=== PATIENT | female | born 1960 | race Caucasian/White ===

== ENCOUNTER 2017-02-12 08:01 | Inpatient (IN) | payer BC ==
[~2017-02-12] VITALS: Ht 170.2 cm; Wt 87.4 kg
[~2017-02-12 08:01] MED LIST: ASPI81TA PO; ATOR1TAB21 PO; BIOT10005 PO; BUPR150T3 PO; CYCL5TA PO; GABA-279 PO; GABA-282 PO; REST30CA PO; ROPI1TAB PO; SERO1TAB PO; TOPA25TA10 PO; TRAM50TA2 PO; TYLE325T5 PO; VITMTA PO; VOLT1GEL24 TOP; ZYRT10TA2 PO
[2017-02-12 09:07] LABS: BASO % 0.6 % (0.0-1.0); EOS # 0.1 K/mm3 (0.0-0.50); EOS % 2.1 % (0.0-3.0); LARGE UNSTAINED CELL # 0.1 K/mm3 (0.0-0.4); LARGE UNSTAINED CELL % 2.1 % (0.0-4.0); LYMPH % 23.8 % (24.0-44.0); MEAN CORPUSCULAR HEMOGLOBIN 31.3 pg (27.0-33.0); MEAN CORPUSCULAR HGB CONC 33.2 g/dl (32.0-36.5); MEAN CORPUSCULAR VOLUME 94.4 fl (80.0-96.0); MONO # 0.2 K/mm3 (0.0-0.8); MONO % 4.9 % (0.0-5.0); NEUTROPHILS # 2.8 K/mm3 (1.8-7.7); NEUTROPHILS % 66.5 % (36.0-66.0); PLATELET COUNT, AUTOMATED 182 k/mm3 (150-450); RED CELL DISTRIBUTION WIDTH 12.9 % (11.5-14.5); WHITE BLOOD COUNT 4.2 K/mm3 (4.0-10.0)
[2017-02-12 09:15] LABS: CALCIUM LEVEL 8.5 MG/DL (8.5-10.1); CREATININE FOR GFR 1.29 MG/DL (0.55-1.02); GLOMERULAR FILTRATION RATE 45.5 (>51); POTASSIUM SERUM 3.9 MEQ/L (3.5-5.1)
--- NOTE | 2017-02-12 09:29 | ECGEPIP ---
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
[2017-02-12 09:45] LABS: INR 0.97
--- NOTE | 2017-02-12 09:59 | REP ---
Syncopal episode. COMPARISON: 09/04/2016 There is no significant change from the prior exam. The 5 mm size lacunar infarct seen in the head of the caudate nucleus on the right is unchanged. There is no evidence of an acute hemorrhagic or nonhemorrhagic infarction. No acute intracranial abnormality has developed. There is no change in the ventricles of the sulci. There is no shift of the midline structures. There are no extra-axial fluid collections. There is no change in the posterior fossa. The skull is unchanged. The paranasal sinuses and mastoid air cells are unchanged. IMPRESSION: No change. Signed by Federico Milner DO 02/12/2017 10:01 A
--- NOTE | 2017-02-12 10:05 | REP ---
AP SUPINE CHEST: REASON: Syncope COMPARISON: 11/14/2013 FINDINGS: The technique utilized in obtaining the radiograph has magnified the cardiac silhouette and accentuated the interstitial markings. The superior mediastinal structures are midline. The cardiac silhouette is unremarkable in size, shape, and position. The diaphragmatic surfaces of the lungs are regular, and the costophrenic angles are clear. The pulmonary wyatt are clear. The imaged osseous structures are intact. Note is made of a cervical rib on the right. IMPRESSION: There is no acute cardiopulmonary disease. Signed by Federico Milner DO 02/12/2017 10:11 A
--- NOTE | 2017-02-12 10:08 | REP ---
Pain after trauma. PRIORS: None. There is a spiral fracture of the distal fibula. There is soft tissue swelling. Large plantar and retrocalcaneal heel spurs are present. The mortise is intact. There is a tiny flak-like radiodensity distal to the tip of the medial malleolus. Whether this represents an acute fracture or an old fracture cannot be stated by this exam. IMPRESSION: Abnormalities as described above. Signed by Federico Milner DO 02/12/2017 10:11 A
[2017-02-12] MEDS ORDERED: ISOVUE-370 76% 100ML VIAL (Q9967) As Ordered ONE (10:22)
--- NOTE | 2017-02-12 10:41 | REP ---
Pain after trauma. PRIORS: None. Previous ankle series showed a distal fibular spinal fracture and other findings. Review that report. This two-view exam of the mid and upper tibia and fibula show no additional fractures. There are some degenerative changes involving the knee. Signed by Federico Milner DO 02/12/2017 10:55 A
[2017-02-12] MEDS ORDERED: MORPHINE 2 MG/ML 1ML SYRINGE IV ONE (10:45)
[2017-02-12] MEDS ORDERED: ONDANSETRON 4MG/2ML VIAL (J2405) IV ONE (10:45)
--- NOTE | 2017-02-12 11:00 | REP ---
REASON: Syncope, dyspnea. PRIORS: None. Contrast utilized: 100 mL of Isovue 370. There is excellent visualization of the pulmonary arterial vasculature. There are no focal filling defects present that would be considered consistent with pulmonary emboli. There is no mediastinal or hilar adenopathy. There are no pleural or pericardial effusions. The imaged upper abdomen and imaged osseous structures are within normal limits. IMPRESSION: Evaluation of the lung wyatt show a few scattered discoid and asymmetric opacities. No other abnormal nodules, masses, or opacities are present. IMPRESSION: 1. There is no evidence of a pulmonary embolus. 2. Likely subsegmental atelectatic changes in the lung wyatt as described above. Signed by Federico Milner DO 02/12/2017 11:45 A
[2017-02-12] MEDS ORDERED: TRAM50TA2 PO ×2 (11:21)
[2017-02-12] MEDS ORDERED: TOPI1TAB31 PO (11:21)
[2017-02-12] MEDS ORDERED: BUPR300T34 PO (11:21)
[2017-02-12] MEDS ORDERED: TRAZ100T4 PO (11:21)
[2017-02-12] MEDS ORDERED: ASPI81TA7 PO (11:21)
--- NOTE | 2017-02-12 11:49 | REP ---
Single AP view of the right ankle with stress applied. After stress, there is evidence of slight widening of the medial mortise. The flake-like radiodensity seen distal to the distal tip of the medial malleolus is again noted. As mentioned in the ankle series, earlier today, this might represent a tiny avulsion fracture or an old fracture. That distinction cannot be made today. It should be stated, there is no evidence of medial soft tissue swelling. IMPRESSION: 1. No change in the appearance of the fibular fracture. 2. There is a widening of the medial mortise. 3. Other findings as described above. Signed by Federico Milner DO 02/12/2017 01:28 P
[2017-02-12] MEDS ORDERED: MORPHINE 2 MG/ML 1ML SYRINGE IV PRN (12:30)
[2017-02-12] MEDS ORDERED: ACETAMINOPHEN TAB 650MG DOSE (2X325MG) PO PRN (12:30)
[2017-02-12] MEDS ORDERED: ONDANSETRON 4MG/2ML VIAL (J2405) IV PRN (12:30)
[2017-02-12] MEDS ORDERED: PERCOCET 5MG/325MG TAB PO PRN (12:30)
--- NOTE | 2017-02-12 13:04 | HPE ---
DATE OF ADMISSION: 02/12/2017 PRIMARY CARE PROVIDER: Dr. Velasquez CHIEF COMPLAINT: Syncope with collapse. HISTORY OF PRESENT ILLNESS: Ms. Singer is a 56-year-old female with known history of silent cerebral infarcts/subacute infarcts that was seen and evaluated back in August 2016 due to facial numbness. She stated that she was in her normal state of health and has not had any issues recently. She suddenly had to get out of bed to check on her cat and while walking from the bedroom to the hallway she had a sudden collapse with no prodromal symptoms whatsoever. She is unsure of how long she was out, but she did not feel that she was out but a few seconds. She then proceeded to get herself up unassisted, walked to the bathroom and again had another episode that she had complete loss of consciousness. She hit her head this time, resulting in a small superficial laceration of the forehead just to the right below the scalp line. Again, she did not feel that she was out very long. Her did check on her. There was no sign of any other trauma. She did not bite her tongue. She do not have any bladder or bowel incontinence. There was no witnessed seizure activity. There was no prodromal symptoms and she did not appear to have any postictal symptoms as well. She does follow with Dr. Malagon is an outpatient for her continued issues with fibromyalgia, restless leg syndrome and subacute infarct. She denies any recent changes in her medications and she feels that her mentation is at baseline as well as her who is present at bedside agreed that she appears to be doing well otherwise. While in the emergency department, she was evaluated and found to have a right distal fibular spiral fracture. This has been immobilized currently. The hospitalist was contacted for admission. PAST MEDICAL HISTORY: 1. Fibromyalgia. 2. Bipolar disorder. 3. Restless leg syndrome. 4. History of subacute cerebral infarcts. HOME MEDICATIONS: - gabapentin 200 mg in the morning and 300 at night - tramadol 50 mg at bedtime - Seroquel 100 mg daily - bupropion 150 mg daily - ropinirole 4 mg at bedtime - Flexeril 5 mg three times a day as needed PAST SURGICAL HISTORY: 1. Hysterectomy. 2. Tubal ligation 3. Left clavicle partial removal. SOCIAL HISTORY: The patient lives at home with her . She denies tobacco use or alcohol abuse. No illicit drug use. No recent travel. No sick contacts. ALLERGIES: - PENICILLIN - SULFA - OPIATES - BIAXIN FAMILY HISTORY: Noncontributory with any history of sudden cardiac . REVIEW OF SYSTEMS: Constitutional: She denies fevers, chills or rigors. She did have loss of consciousness as indicated above x2 this morning. Denies nausea or vomiting. HEENT: She denies lightheaded, dizziness, blurry vision, double vision or tinnitus. No difficulty with speech or swallow. Pulmonology and Respiratory: Denies any hemoptysis. No productive sputum or cough. However, her did state that she does have issues with snoring at night and has had episodes where she has woke up gasping for air which sounds similar to apneic events. Cardiovascular: No chest pain. No paroxysmal nocturnal dyspnea (PND). No orthopnea. No lower extremity edema. No palpitations. No hematochezia or melena. Genitourinary (): No dysuria, frequency or hematuria. Musculoskeletal: She does have right ankle pain from fracture. She otherwise has no bone, muscle or joint pain, swelling or erythema. Neurologic: Positive for restless leg syndrome and fibromyalgia. She did have a loss of consciousness this morning. Again, she does have what appears to be apneic events when she sleeps and likely needs to have outpatient evaluation with a sleep study. Psychiatric: Positive for bipolar disorder, restless leg syndrome and intermittent anxiety. No suicidal ideation. No audiovisual sedation. Endocrine: Negative for diabetes and negative for thyroid disorder. Lymphatics: No lumps, bumps or swelling of neck, axilla or groin. No night sweats. No weight loss. Hematology: No history of bleeding or bruising disorder. No prior history of venous thromboembolism. Oncology: No history of cancer. Skin: No history of skin lesions or skin cancer. 10-point review of systems completed and pertinent positives are listed. PHYSICAL EXAMINATION: Temperature is 97.1, pulse 74 and regular, respiratory rate 18, blood pressure (BP) 121/74, SPO2 is 97% on room air. General: No acute distress, alert and oriented and pleasant. HEENT: She does have a small superficial laceration just below the scalp line above the right eye. It is approximately a centimeter and a half in length and it has been closed with Dermabond and Steri-Strips. There is some superficial ecchymosis and bruising around the area. Otherwise, eyes are pupils equal, reactive to light and accommodation (FACUNDO). There does not appear to be any ecchymosis around the eyes or nose. Ears are clear of any otorrhea and there is no Danielle's sign present. Throat is clear. Neck: Supple. Lungs: Clear to auscultation. Heart regular rate and rhythm. Normal S1, S2. No murmurs, gallops or rubs. No jugular venous distention (JVD) is appreciated. Abdomen: Normoactive bowel sounds, soft, nontender, nondistended. Extremities: No edema. No calf tenderness. She does have some tenderness on palpation with swelling noted over the distal fibular area. Pulses were intact. Sensation is intact. Neurologic: Cranial nerves II-XII grossly intact. 12-lead EKG: Sinus rhythm with no acute ST-T wave abnormalities. X-ray of the right tib-fib and ankle is significant for a positive spiral fracture involving the right distal fibula. CT angio is negative for pulmonary embolism (PE). She did have however an elevated D-dimer of 1518, but no signs of pulmonary embolism is indicated. Chest x-ray shows no acute cardiopulmonary processes. Head CT with no acute intracranial hemorrhage or fracture. White count 4.2, hemoglobin 14, platelets are 182,000. Sodium 141, potassium 3.9, chloride 115, bicarb 21, anion gap 5, BUN is 14, creatinine 1.29, glucose 114, CK 105, CK-MB 1.4. Troponin is less than 0.02. TSH 2.18. IMPRESSION: Mrs. Singer is a pleasant 56-year-old female who unfortunately had two events this morning resulting in loss of consciousness and minor head trauma with ecchymosis and a small superficial laceration of the forehead. She did not had any prodromal warning and did not have any postictal symptoms. No loss of bladder or bowel control. No signs of what would appear to be a seizure disorder. She does have a history of prior subacute cerebral infarcts with no residual deficit. Her fall has resulted in a spiral fracture of the right distal fibula. At any rate, she will need to be admitted for further evaluation and orthopedics has been consulted. PROBLEM LIST: 1. Syncope with collapse. 2. Right ankle fracture 3. Mild acute kidney injury. 4. Bipolar disorder. 5. Fibromyalgia. 6. Restless leg syndrome. 7. History of cerebral infarct with no residual deficits. PLAN: Admit to progressive care unit (PCU) on telemetry. Will cycle her cardiac markers. She had a 2-D echo performed in August 2016 which demonstrated left ventricular ejection fraction of 70-75% with grade 1 diastolic dysfunction, no anatomic abnormalities, and no signs of aortic stenosis. She does have symptomatology that is suggestive of sleep apnea. Will check an oximetry on her tonight. Obstructive sleep apnea (LILA) precautions will be placed on her as well. I did speak with orthopedics. At her baseline activity, she is able to achieve greater than METS without any limitations. She did have a cardiac catheterization about 10-15 years ago at [facility] which did not demonstrate any coronary artery disease. Will see if we can get those records. Recommend placing her on telemetry for the next 24 hours, cycle her cardiac enzymes, and repeat her EKG prior to medical clearance. For now, she can eat, but will anticipate making her nothing by mouth (n.p.o.) after midnight with the anticipation of perhaps going to surgery tomorrow if she is considered medically optimized at that time. I did discuss this with orthopedics to make sure that they were aware of the plan and will proceed appropriately. LINO
[2017-02-12 14:30] VITALS: BP 132/73
[2017-02-12] MEDS: DOCUSATE SODIUM 100 MG CAP PO SCH ×2 (14:53→20:49)
[2017-02-12] MEDS: HEPARIN SOD (PORCINE) 5000 UNITS/ML VIAL SC SCH ×2 (14:53→20:50)
[2017-02-12] MEDS: MULTIVITAMINS/MINERALS THERAP 1 TAB PO SCH (14:54)
[2017-02-12] MEDS: TOPIRAMATE (TopAMAX) 100 MG TAB PO SCH ×2 (14:54→20:49)
[2017-02-12] MEDS: ASPIRIN 81 MG ENTERIC TAB PO SCH (14:54)
[2017-02-12] MEDS: GABAPENTIN 300 MG CAP PO SCH ×2 (14:54→20:49)
[2017-02-12] MEDS: PERCOCET 5MG/325MG TAB PO PRN ×2 (14:55→20:49)
[2017-02-12 16:00] VITALS: BP 104/63
--- NOTE | 2017-02-12 16:33 | CR.PDOC ---
[facility] Consultation Consultation DATE OF CONSULTATION: Feb 12, 2017 at 08:37 REFERRING PROVIDER: Brandon Munoz MD ATTENDING PHYSICIAN: Dr. Leo Loyd REASON FOR CONSULTATION/CHIEF COMPLAINT: Right ankle fracture. HISTORY OF PRESENT ILLNESS: Patient is a 56 y/o female with a history of 2 syncopal falls earlier today resulting in a rotational injury to the right ankle. Patient had immediate pain and inability to bear weight and presented to the [facility] ER for further evaluation. She denies antecedent headaches, dizziness, chest pain, palpitations, or shortness of breath prior to fall. ALLERGIES: Please see below. HOME MEDICATIONS: Please see below. PAST MEDICAL HISTORY: 1. Fibromyalgia. 2. Bipolar disorder. 3. Restless leg syndrome. 4. History of subacute cerebral infarcts. HOME MEDICATIONS: - gabapentin 200 mg in the morning and 300 at night - tramadol 50 mg at bedtime - Seroquel 100 mg daily - bupropion 150 mg daily - ropinirole 4 mg at bedtime - Flexeril 5 mg three times a day as needed PAST SURGICAL HISTORY: 1. Hysterectomy. 2. Tubal ligation 3. Left clavicle partial removal. SOCIAL HISTORY: The patient lives at home with her . She denies tobacco use or alcohol abuse. No illicit drug use. No recent travel. No sick contacts. ALLERGIES: - PENICILLIN - SULFA - OPIATES - BIAXIN FAMILY HISTORY: Noncontributory with any history of sudden cardiac . REVIEW OF SYSTEMS: Constitutional: She denies fevers, chills or rigors. + LOC x2 this morning per HPI. HEENT: She denies lightheaded, dizziness, blurry vision, double vision or tinnitus. No difficulty with speech or swallow. Pulmonology and Respiratory: Denies any hemoptysis. No productive sputum or cough. Cardiovascular: No chest pain. No palpitations. Genitourinary (): No dysuria, frequency or hematuria. Musculoskeletal: + ankle pain per HPI Neurologic: + LOC per HPI Psychiatric: Positive for bipolar disorder, restless leg syndrome and intermittent anxiety. No suicidal ideation. No audiovisual sedation. Skin: No history of skin lesions or skin cancer. PHYSICAL EXAMINATION: Temperature is 97.1, pulse 74 and regular, respiratory rate 18, blood pressure (BP) 121/74, SPO2 is 97% on room air. GENERAL APPEARANCE: Well nourished female, appears stated age, in no acute distress. HEENT: Normocephalic, atraumatic. CARDIOVASCULAR: 2+ DP/PT pulses and brisk capillary refill to all digits RLE. EXTREMITIES: Focused physical exam of the RLE demonstrates mild soft tissue swelling about the right ankle. There is tenderness about the lateral malleolus. Patient able to flex/extend all toes. Ankle ROM limited secondary to pain NEUROLOGICAL: sensation/motor intact in RLE tibial, sural, saphenous, SPN, DPN distributions RLE. Radiographs: Plain radiographs of the right ankle demonstrate a distal fibula fracture that begins at the level of the syndesmosis. External rotation stress exam demonstrates medial clear space widening consistent with an unstable fracture pattern ASSESSMENT/PLAN: 56 y/o female with an unstable R ankle fracture 1. Given unstable nature of fracture, recommend ORIF R ankle pending complete syncopal workup and appropriate risk stratification. 2. Will plan for ORIF tomorrow Jan pending clearance 3. I discussed with the patient the risks, benefits, indications, and alternatives and she has elected to proceed. 4. NPO after midnight 5. Splint and elevate for comfort 6. Clindamycin IV local telephone operator to OR Vital Signs/I&O Vital Signs Date Time Temp Pulse Resp B/P Pulse Ox O2 Delivery O2 Flow Rate FiO2 02/12/17 15:45 16 02/12/17 13:58 99.2 02/12/17 13:53 106/66 02/12/17 13:49 70 99 02/12/17 11:00 Room Air Laboratory Data Labs 24H Laboratory Tests 2 02/12/17 08:34: Anion Gap 5L, White Blood Count 4.2, Red Blood Count 4.46, Hemoglobin 14.0, Hematocrit 42.1, Mean Corpuscular Volume 94.4, Mean Corpuscular Hemoglobin 31.3 , Mean Corpuscular Hemoglobin Concent 33.2, Red Cell Distribution Width 12.9, Platelet Count 182, Neutrophils (%) (Auto) 66.5H, Lymphocytes (%) (Auto) 23.8L, Monocytes (%) (Auto) 4.9, Eosinophils (%) (Auto) 2.1, Basophils (%) (Auto) 0.6, Neutrophils # (Auto) 2.8, Lymphocytes # (Auto) 1.0L, Monocytes # (Auto) 0.2, Eosinophils # (Auto) 0.1, Basophils # (Auto) 0.0, Blood Urea Nitrogen 14, Creatinine 1.29H, Sodium Level 141, Potassium Level 3.9, Chloride Level 115H, Carbon Dioxide Level 21, Calcium Level 8.5, Creatine Kinase MB 1.4, Creatine Kinase MB Relative Index 1.33, Glomerular Filtration Rate 45.5L, Large Unclassified Cells # 0.1, Large Unclassified Cells % 2.1, Thyroid Stimulating Hormone (TSH) 2.180, Total Creatine Kinase 105, Troponin I < 0.02 02/12/17 09:31: Activated Partial Thromboplast Time 26.4L, D-Dimer, Quantitative 1518.4H, Prothromb Time International Ratio 0.97, Prothrombin Time 13.0 CBC/BMP Laboratory Tests 02/12/17 08:34 Calcium Level 8.5, Red Blood Count 4.46, Mean Corpuscular Volume 94.4, Mean Corpuscular Hemoglobin 31.3, Mean Corpuscular Hemoglobin Concent 33.2, Red Cell Distribution Width 12.9, Neutrophils (%) (Auto) 66.5 H, Lymphocytes (%) (Auto) 23.8 L, Monocytes (%) (Auto) 4.9, Eosinophils (%) (Auto) 2.1, Basophils (%) ( Auto) 0.6, Neutrophils # (Auto) 2.8, Lymphocytes # (Auto) 1.0 L, Monocytes # ( Auto) 0.2, Eosinophils # (Auto) 0.1, Basophils # (Auto) 0.0 Allergies Coded Allergies: Morphine (Unverified Adverse Reaction, Mild, ALL OPIATES-VOMITING, 09/04/16 ) Clarithromycin (Unverified Adverse Reaction, Unknown, VOMITING , 09/04/16) Penicillins (Unverified Adverse Reaction, Unknown, HIVES, 09/04/16) Sulfa Antibiotics (Unverified Adverse Reaction, Unknown, HIVES, 09/04/16) Home Medications Scheduled Aspirin (Aspirin) 81 Mg Tab 81 MG PO DAILY (Reported) Biotin (Vitamin H) (Biotin) 1,000 Mcg Tab 1,000 MCG PO DAILY (Reported) Bupropion HCl (Bupropion HCl Xl) 300 Mg Tab 300 MG PO DAILY (Reported) Cetirizine HCl (Zyrtec Allergy) 10 Mg Tab 10 MG PO QHS (Reported) Gabapentin (Gabapentin) 300 Mg Cap 300 MG PO TID (Reported) Multivitamins *[facility]* (Thera M Plus *[facility]*) 1 Tab Tab 1 TAB PO DAILY (Reported) Quetiapine Fumerate (Seroquel) 100 Mg Tab 100 MG PO QHS (Reported) Ropinirole Hydrochloride (Ropinirole HCl) 1 Mg Tab 4 MG PO QHS (Reported) Topiramate (Topiramate) 100 Mg Tab 100 MG PO BID (Reported) Tramadol HCl (Tramadol HCl) 50 Mg Tab 100 MG PO QHS (Reported) Trazodone HCl (Trazodone HCl) 100 Mg Tab 100 MG PO QHS (Reported) Scheduled PRN Acetaminophen (Tylenol) 325 Mg Tab 650 MG PO Q4H PRN PRN PAIN (Reported) Tramadol HCl (Tramadol HCl) 50 Mg Tab 50 MG PO Q6H PRN PRN PAIN (Reported) LORI LOYD MD Feb 12, 2017 16:33
[2017-02-12] MEDS: buPROPion **XL** TABLET 150MG (WELLBUTRIN XL) PO SCH (17:59)
[2017-02-12 19:54] VITALS: BP_SYST 120; BP_SYST 134; BP_DIAS 67; BP_DIAS 70
[2017-02-12 19:55] VITALS: BP_SYST 125; BP_SYST 157; BP_DIAS 73; BP_DIAS 80
[2017-02-12] MEDS: QUEtiapine FUMARATE 100 MG TAB PO SCH (20:49)
[2017-02-12] MEDS: CETIRIZINE (ZyrTEC) 10 MG TAB PO SCH (20:49)
[2017-02-12] MEDS: rOPINIRole 1MG TAB PO SCH (20:49)
[2017-02-12] MEDS: traZODone 100 MG TAB PO SCH (20:49)
[2017-02-13] VITALS (8 sets, daily range): BP systolic 97–118; BP diastolic 52–68
[2017-02-13] MEDS: PERCOCET 5MG/325MG TAB PO PRN ×4 (04:05→20:26)
[2017-02-13] MEDS: HEPARIN SOD (PORCINE) 5000 UNITS/ML VIAL SC SCH (06:00)
[2017-02-13] MEDS ORDERED: CLINDAMYCIN 600 MG in APPROPRIATE DILUENT 1 EA IV SCH (08:00)
[2017-02-13 08:09] LABS: MEAN CORPUSCULAR HEMOGLOBIN 30.4 pg (27.0-33.0); MEAN CORPUSCULAR HGB CONC 32.3 g/dl (32.0-36.5); MEAN CORPUSCULAR VOLUME 94.2 fl (80.0-96.0); RED CELL DISTRIBUTION WIDTH 12.9 % (11.5-14.5); WHITE BLOOD COUNT 5.5 K/mm3 (4.0-10.0)
[2017-02-13] MEDS: MULTIVITAMINS/MINERALS THERAP 1 TAB PO SCH (08:34)
[2017-02-13] MEDS: buPROPion **XL** TABLET 150MG (WELLBUTRIN XL) PO SCH (08:34)
[2017-02-13] MEDS: ASPIRIN 81 MG ENTERIC TAB PO SCH (08:34)
[2017-02-13] MEDS: DOCUSATE SODIUM 100 MG CAP PO SCH ×2 (08:34→20:22)
[2017-02-13] MEDS: GABAPENTIN 300 MG CAP PO SCH ×3 (08:34→20:24)
[2017-02-13] MEDS: TOPIRAMATE (TopAMAX) 100 MG TAB PO SCH ×2 (08:34→20:24)
[2017-02-13 09:12] LABS: CALCIUM LEVEL 8.5 MG/DL (8.5-10.1); CREATININE FOR GFR 1.16 MG/DL (0.55-1.02); GLOMERULAR FILTRATION RATE 51.4 (>51); POTASSIUM SERUM 3.9 MEQ/L (3.5-5.1)
--- NOTE | 2017-02-13 10:13 | REP ---
MRI BRAIN WITHOUT CONTRAST: HISTORY: Left hand numbness. COMPARISON: 09/04/2016. Areas of increased signal intensity on T2-weighted images are present in the right basal ganglia, periventricular white matter of the right parietal lobe and right cerebellum. These represent old lacunar infarctions. Scattered punctate areas of increased signal intensity on T2-weighted images are present in the periventricular and subcortical white matter. This represents small vessel ischemic disease. There is no intraparenchymal hemorrhage, acute infarct, mass or midline shift. The ventricular system is normal in appearance. There is no extracerebral collection. Mucosal thickening is present in the left mastoid air cells. The sinuses are clear. IMPRESSION: 1. Old right basal ganglia, right parietal lobe and right cerebellar lacunar infarctions. 2. Minimal small vessel ischemic disease. Signed by Polo Chowdary MD 02/13/2017 10:15 A
--- NOTE | 2017-02-13 11:02 | CR.PDOC ---
[facility] Consultation Consultation Follow up consult note DATE OF CONSULTATION: Feb 12, 2017 at 08:37 REASON FOR CONSULTATION/CHIEF COMPLAINT: f/u R ankle fracture. Subjective: Patient is a 56 y/o female s/p syncopal fall resulting in right ankle fracture with subtle medial clear space widening on stress exam. After discussion with Hospitalist, there is suspicion that TIA may be the etiology of her syncopal falls. ASSESSMENT/PLAN: 1. Given the relatively stable appearance of her fracture pattern with only subtle medial clear space widening on stress exam, the risks of surgery may outweigh the benefits. Therefore, we recommend cast treatment with non weight bearing for 6 weeks. 2. Patient to follow up routinely after discharge from [place] [facility] [place] to a short leg NWB cast. Vital Signs/I&O Vital Signs Date Time Temp Pulse Resp B/P Pulse Ox O2 Delivery O2 Flow Rate FiO2 02/13/17 08:00 98.0 71 18 108/62 95 Room Air I&O- Last 24 Hours up to 6 AM 02/13/17 06:00 Intake Total 900 ml Output Total 300 ml Balance 600 ml Laboratory Data Labs 24H Laboratory Tests 2 02/12/17 17:40: Creatine Kinase MB 1.8, Creatine Kinase MB Relative Index 1.56, Total Creatine Kinase 115, Troponin I < 0.02 02/13/17 01:55: Creatine Kinase MB 2.1, Creatine Kinase MB Relative Index 1.87, Total Creatine Kinase 112, Troponin I < 0.02 02/13/17 07:57: Anion Gap 9, Blood Urea Nitrogen 11, Creatinine 1.16H, Sodium Level 143, Potassium Level 3.9, Chloride Level 113H, Carbon Dioxide Level 21, Calcium Level 8.5, Glomerular Filtration Rate 51.4 CBC/BMP Laboratory Tests 02/13/17 07:57 Calcium Level 8.5, Red Blood Count 4.42, Mean Corpuscular Volume 94.2, Mean Corpuscular Hemoglobin 30.4, Mean Corpuscular Hemoglobin Concent 32.3, Red Cell Distribution Width 12.9 Allergies Coded Allergies: Morphine (Unverified Adverse Reaction, Mild, ALL OPIATES-VOMITING, 09/04/16 ) Clarithromycin (Unverified Adverse Reaction, Unknown, VOMITING , 09/04/16) Penicillins (Unverified Adverse Reaction, Unknown, HIVES, 11/6/16) Sulfa Antibiotics (Unverified Adverse Reaction, Unknown, HIVES, 09/04/16) Home Medications Scheduled Aspirin (Aspirin) 81 Mg Tab 81 MG PO DAILY (Reported) Biotin (Vitamin H) (Biotin) 1,000 Mcg Tab 1,000 MCG PO DAILY (Reported) Bupropion HCl (Bupropion HCl Xl) 300 Mg Tab 300 MG PO DAILY (Reported) Cetirizine HCl (Zyrtec Allergy) 10 Mg Tab 10 MG PO QHS (Reported) Gabapentin (Gabapentin) 300 Mg Cap 300 MG PO TID (Reported) Multivitamins *[facility] STOCKED* (Thera M Plus *[facility] STOCKED*) 1 Tab Tab 1 TAB PO DAILY (Reported) Quetiapine Fumerate (Seroquel) 100 Mg Tab 100 MG PO QHS (Reported) Ropinirole Hydrochloride (Ropinirole HCl) 1 Mg Tab 4 MG PO QHS (Reported) Topiramate (Topiramate) 100 Mg Tab 100 MG PO BID (Reported) Tramadol HCl (Tramadol HCl) 50 Mg Tab 100 MG PO QHS (Reported) Trazodone HCl (Trazodone HCl) 100 Mg Tab 100 MG PO QHS (Reported) Scheduled PRN Acetaminophen (Tylenol) 325 Mg Tab 650 MG PO Q4H PRN PRN PAIN (Reported) Tramadol HCl (Tramadol HCl) 50 Mg Tab 50 MG PO Q6H PRN PRN PAIN (Reported) LORI LOYD MD Feb 13, 2017 11:02
--- NOTE | 2017-02-13 12:51 | ECGEPIP ---
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
--- NOTE | 2017-02-13 18:54 | IPNPDOC ---
Date Seen The patient was seen on 02/13/17. Progress Note Hospitalist Progress Note Subjective: Patient feels well, and has not had any other episodes of passing out. She does note, however, that overnight she has developed numbness in her left thumb, forefinger, and middle finger. Objective: Physical Exam: Vitals: Vital Sign - Last 24 Hours 02/12/17 02/12/17 02/12/17 02/12/17 19:54 19:55 19:55 20:49 Temp 98.9 Pulse 69 76 104 Resp 16 18 B/P 120/67 125/73 157/80 Pulse Ox 94 O2 Delivery Room Air 02/13/17 02/13/17 02/13/17 02/13/17 00:22 04:00 04:05 08:00 Temp 97.8 98.2 98.0 Pulse 72 75 71 Resp 18 18 18 18 B/P 109/60 117/68 108/62 Pulse Ox 96 98 95 O2 Delivery Room Air Room Air Room Air 02/13/17 02/13/17 02/13/17 02/13/17 11:25 11:27 11:55 15:35 Temp 98.8 97.7 Pulse 70 75 Resp 20 20 18 18 B/P 118/60 104/62 Pulse Ox 96 99 O2 Delivery Room Air Room Air 02/13/17 16:02 Resp 20 Pulse Ox 96 O2 Delivery Room Air General: Awake, alert, no acute distress HEENT: Normal cephalic, atraumatic, extraocular movements intact CV: Regular rate and rhythm, no murmurs rubs or gallops Lungs: Clear To auscultation bilaterally Abd: Soft, Nontender, nondistended Extremities: Right ankle is splinted, no edema of the left ankle Neuro: Alert and oriented 3, finger to nose intact, no facial droop, no obvious deficits in any extremities, noting that examination of the right lower extremity is limited Psych: Normal mood and affect Labs and Imaging: Laboratory Tests 02/13/17 07:57 Calcium Level 8.5, Red Blood Count 4.42, Mean Corpuscular Volume 94.2, Mean Corpuscular Hemoglobin 30.4, Mean Corpuscular Hemoglobin Concent 32.3, Red Cell Distribution Width 12.9 Assessment and Plan: 56-year-old female with history of silent CVAs, fibromyalgia, bipolar disorder, restless leg syndrome who presented to the emergency department after experiencing to 7 episodes of syncope this morning. The first one happened when she got out of bed quite suddenly, and the second one happened as she was arriving in the bathroom. During one of these episodes, the fall resulted in a right spiral ankle fracture. 1. Right spiral ankle fracture: Management as per orthopedics 2. Syncope: Etiology is unclear at this time. There is no evidence of orthostasis in the emergency department, although her creatinine is slightly elevated at 1.29. Her telemetry overnight did not show any evidence of arrhythmia or bradycardia, and an EKG and troponins are unremarkable. An echocardiogram completed in August of last year showed preserved ejection fraction, grade 1 diastolic dysfunction, no evidence of significant valvular disease. The history is not consistent with any sort of seizure. Given her new symptoms of numbness in her hand, and her history of silent CVAs, I think it is best to check an MRI at this time. 3. Elevated d-dimer: CTA does not show any evidence of pulmonary embolism. 4. Fibromyalgia, Bipolar disorder: Continue home Topamax, Seroquel, Wellbutrin, gabapentin, trazodone 5. Restless leg syndrome: Continue home Requip. DVT prophylaxis: Heparin Dispo: pending MRI results and workup of syncope VS, I&O, 24H, Fishbone Vital Signs/I&O Vital Signs Date Time Temp Pulse Resp B/P Pulse Ox O2 Delivery O2 Flow Rate FiO2 02/13/17 16:02 20 96 Room Air 02/13/17 15:35 97.7 75 104/62 I&O- Last 24 Hours up to 6 AM 02/13/17 06:00 Intake Total 900 ml Output Total 300 ml Balance 600 ml Laboratory Data 24H LABS Laboratory Tests 2 02/13/17 01:55: Creatine Kinase MB 2.1, Creatine Kinase MB Relative Index 1.87, Total Creatine Kinase 112, Troponin I < 0.02 02/13/17 07:57: Anion Gap 9, Blood Urea Nitrogen 11, Creatinine 1.16H, Sodium Level 143, Potassium Level 3.9, Chloride Level 113H, Carbon Dioxide Level 21, Calcium Level 8.5, Glomerular Filtration Rate 51.4 CBC/BMP Laboratory Tests 02/13/17 07:57 Calcium Level 8.5, Red Blood Count 4.42, Mean Corpuscular Volume 94.2, Mean Corpuscular Hemoglobin 30.4, Mean Corpuscular Hemoglobin Concent 32.3, Red Cell Distribution Width 12.9 ALYSON NANCE Feb 13, 2017 18:54
[2017-02-13] MEDS: rOPINIRole 1MG TAB PO SCH (20:22)
[2017-02-13] MEDS: CETIRIZINE (ZyrTEC) 10 MG TAB PO SCH (20:23)
[2017-02-13] MEDS: traZODone 100 MG TAB PO SCH (20:23)
[2017-02-13] MEDS: QUEtiapine FUMARATE 100 MG TAB PO SCH (20:24)
[2017-02-14] VITALS (9 sets, daily range): BP systolic 100–159; BP diastolic 57–101
[2017-02-14] MEDS ORDERED: SLF 3 ML SYR IV PRN
[2017-02-14 05:50] LABS: MEAN CORPUSCULAR HEMOGLOBIN 31.4 pg (27.0-33.0); MEAN CORPUSCULAR HGB CONC 31.6 g/dl (32.0-36.5); RED CELL DISTRIBUTION WIDTH 12.7 % (11.5-14.5); WHITE BLOOD COUNT 4.5 K/mm3 (4.0-10.0)
[2017-02-14 05:56] LABS: CALCIUM LEVEL 7.8 MG/DL (8.5-10.1); CREATININE FOR GFR 1.09 MG/DL (0.55-1.02); GLOMERULAR FILTRATION RATE 55.3 (>51); MAGNESIUM LEVEL 2.3 MG/DL (1.8-2.4); POTASSIUM SERUM 3.9 MEQ/L (3.5-5.1)
[2017-02-14] MEDS: PERCOCET 5MG/325MG TAB PO PRN ×3 (05:56→21:21)
[2017-02-14] MEDS: SLF 3 ML SYR IV SCH ×3 (05:57→21:22)
[2017-02-14 05:58] LABS: MEAN CORPUSCULAR VOLUME 99.2 fl (80.0-96.0)
[2017-02-14] MEDS: GABAPENTIN 300 MG CAP PO SCH ×3 (09:12→21:21)
[2017-02-14] MEDS: MULTIVITAMINS/MINERALS THERAP 1 TAB PO SCH (09:12)
[2017-02-14] MEDS: DOCUSATE SODIUM 100 MG CAP PO SCH (09:12)
[2017-02-14] MEDS: ASPIRIN 81 MG ENTERIC TAB PO SCH (09:12)
[2017-02-14] MEDS: TOPIRAMATE (TopAMAX) 100 MG TAB PO SCH ×2 (09:12→21:22)
[2017-02-14] MEDS: buPROPion **XL** TABLET 150MG (WELLBUTRIN XL) PO SCH (09:13)
[2017-02-14] MEDS: NS 1,000 ML IV SCH ×2 (10:01→16:56)
--- NOTE | 2017-02-14 19:09 | IPNPDOC ---
Date Seen The patient was seen on 02/14/17. Progress Note Hospitalist Progress Note Subjective: Patient continues to feel well. She states that the numbness in her left hand has resolved. Objective: Physical Exam: Vitals: Vital Sign - Last 24 Hours 02/13/17 02/13/17 02/13/17 02/13/17 20:00 20:26 20:28 23:59 Temp 97.8 98.2 Pulse 80 80 77 Resp 20 14 14 20 B/P 98/58 98/58 97/52 Pulse Ox 98 98 98 99 O2 Delivery Room Air Room Air Room Air Room Air 02/14/17 02/14/17 02/14/17 02/14/17 04:00 05:56 07:01 07:30 Temp 98.0 Pulse 81 Resp 18 14 B/P 100/57 Pulse Ox 99 95 95 O2 Delivery Room Air Room Air Room Air 02/14/17 02/14/17 02/14/17 02/14/17 07:45 10:01 10:31 12:20 Temp 97.9 97.5 Pulse 73 69 Resp 20 20 20 20 B/P 119/72 159/81 Pulse Ox 97 97 O2 Delivery Room Air Room Air Room Air Room Air 02/14/17 15:45 Temp 98.2 Pulse 77 Resp 20 B/P 116/62 Pulse Ox 98 O2 Delivery Room Air General: Awake, alert, no acute distress HEENT: Normal cephalic, atraumatic, extraocular movements intact CV: Regular rate and rhythm, no murmurs rubs or gallops Lungs: Clear To auscultation bilaterally Abd: Soft, Nontender, nondistended Extremities: Right ankle is splinted, no edema of the left ankle Neuro: Alert and oriented 3, finger to nose intact, no facial droop, no obvious deficits in any extremities, noting that examination of the right lower extremity is limited Psych: Normal mood and affect Labs and Imaging: Laboratory Tests 02/14/17 05:33 Calcium Level 7.8 L, Red Blood Count 4.19, Mean Corpuscular Volume 99.2 #H, Mean Corpuscular Hemoglobin 31.4, Mean Corpuscular Hemoglobin Concent 31.6 L, Red Cell Distribution Width 12.7 Assessment and Plan: 56-year-old female with history of silent CVAs, fibromyalgia, bipolar disorder, restless leg syndrome who presented to the emergency department after experiencing to 7 episodes of syncope this morning. The first one happened when she got out of bed quite suddenly, and the second one happened as she was arriving in the bathroom. During one of these episodes, the fall resulted in a right spiral ankle fracture. 1. Right spiral ankle fracture: Management as per orthopedics; they are currently recommending casting 2. Syncope: Etiology is unclear at this time. There is no evidence of orthostasis in the emergency department, although her creatinine was slightly elevated at 1.29. Her telemetry has not shown any evidence of arrhythmia or bradycardia, and an EKG and troponins are unremarkable. An echocardiogram completed in August of last year showed preserved ejection fraction, grade 1 diastolic dysfunction, no evidence of significant valvular disease. The history is not consistent with any sort of seizure. Given her new symptoms of numbness in her hand, and her history of silent CVAs, we checked an MRI, which did not show any acute changes. Overnight and this morning, her BP has been low, so we will give her IVF and recheck orthostatics. 3. Elevated d-dimer: CTA does not show any evidence of pulmonary embolism. 4. Fibromyalgia, Bipolar disorder: Continue home Topamax, Seroquel, Wellbutrin, gabapentin, trazodone 5. Restless leg syndrome: Continue home Requip. DVT prophylaxis: Heparin Dispo: pending improvement in low BP VS, I&O, 24H, [facility] Vital Signs/I&O Vital Signs Date Time Temp Pulse Resp B/P Pulse Ox O2 Delivery O2 Flow Rate FiO2 02/14/17 15:45 98.2 77 20 116/62 98 Room Air I&O- Last 24 Hours up to 6 AM 02/14/17 06:00 Intake Total 500 ml Output Total 550 ml Balance -50 ml Laboratory Data 24H LABS Laboratory Tests 2 02/14/17 05:33: Anion Gap 6L, Blood Urea Nitrogen 10, Creatinine 1.09H, Sodium Level 143, Potassium Level 3.9, Chloride Level 112H, Carbon Dioxide Level 25, Calcium Level 7.8L, Glomerular Filtration Rate 55.3, Magnesium Level 2.3 CBC/BMP Laboratory Tests 02/14/17 05:33 Calcium Level 7.8 L, Red Blood Count 4.19, Mean Corpuscular Volume 99.2 #H, Mean Corpuscular Hemoglobin 31.4, Mean Corpuscular Hemoglobin Concent 31.6 L, Red Cell Distribution Width 12.7 ALYSON NANCE Feb 14, 2017 19:09
[2017-02-14] MEDS: rOPINIRole 1MG TAB PO SCH (21:21)
[2017-02-14] MEDS: traZODone 100 MG TAB PO SCH (21:21)
[2017-02-14] MEDS: CETIRIZINE (ZyrTEC) 10 MG TAB PO SCH (21:22)
[2017-02-14] MEDS: QUEtiapine FUMARATE 100 MG TAB PO SCH (21:22)
[2017-02-14] MEDS ORDERED: MIRALAX *UNIT DOSE* 17GM PACKET PO PRN (21:30)
[2017-02-15] MEDS: NS 1,000 ML IV SCH ×2 (02:37→14:13)
[2017-02-15 04:00] VITALS: BP 96/57
[2017-02-15] MEDS: SLF 3 ML SYR IV SCH ×2 (04:32→14:00)
[2017-02-15 06:07] LABS: MEAN CORPUSCULAR HEMOGLOBIN 30.8 pg (27.0-33.0); MEAN CORPUSCULAR HGB CONC 32.6 g/dl (32.0-36.5); MEAN CORPUSCULAR VOLUME 94.4 fl (80.0-96.0); RED CELL DISTRIBUTION WIDTH 12.8 % (11.5-14.5); WHITE BLOOD COUNT 4.2 K/mm3 (4.0-10.0)
[2017-02-15 06:21] LABS: ANION GAP 4 MEQ/L (8-16); BLOOD UREA NITROGEN 10 MG/DL (7-18); CALCIUM LEVEL 8.2 MG/DL (8.5-10.1); CARBON DIOXIDE LEVEL 23 MEQ/L (21-32); CHLORIDE LEVEL 117 MEQ/L (98-107); CREATININE FOR GFR 0.96 MG/DL (0.55-1.02); GLOMERULAR FILTRATION RATE > 60.0 (>51); GLUCOSE, FASTING 104 MG/DL (70-105); MAGNESIUM LEVEL 2.4 MG/DL (1.8-2.4); POTASSIUM SERUM 3.9 MEQ/L (3.5-5.1); SODIUM LEVEL 144 MEQ/L (136-145)
[2017-02-15 06:36] VITALS: BP 108/62
[2017-02-15] MEDS: PERCOCET 5MG/325MG TAB PO PRN (06:37)
--- NOTE | 2017-02-15 06:57 | NOCOX ---
DATE OF PROCEDURE: 02/13/2017 INTERPRETATION: Nocturnal recording oximetry was performed on room air. A total of 7 hours and 9 minutes of data was reviewed. Mean oxygen saturation for the study was 97% with a minimal recorded value of 85%. She spent 99.8% of this time with saturations greater than or equal to 90%. There are fluctuations int the SpO2 wave form suggestive of sleep disorder breathing. IMPRESSION: 1. Acceptable nocturnal oxygenation on room air. 2. Fluctuations in the SpO2 wave form suggestive of sleep disorder breathing. Clinical correlation will be necessary.
[2017-02-15 08:00] VITALS: BP_SYST 114; BP_SYST 121; BP_SYST 129; BP_DIAS 65; BP_DIAS 69; BP_DIAS 71; BP_DIAS 74
[2017-02-15] MEDS ORDERED: SENOKOT S TAB PO SCH (09:00)
[2017-02-15] MEDS: buPROPion **XL** TABLET 150MG (WELLBUTRIN XL) PO SCH (09:37)
[2017-02-15] MEDS: TOPIRAMATE (TopAMAX) 100 MG TAB PO SCH (09:37)
[2017-02-15] MEDS: MULTIVITAMINS/MINERALS THERAP 1 TAB PO SCH (09:37)
[2017-02-15] MEDS: GABAPENTIN 300 MG CAP PO SCH (09:37)
[2017-02-15] MEDS: ASPIRIN 81 MG ENTERIC TAB PO SCH (09:38)
[2017-02-15] MEDS ORDERED: PERCOCET PO (10:58)
--- NOTE | 2017-02-15 16:48 | DS.PDOC ---
Discharge Summary General Date of Admission Feb 12, 2017 at 11:13 Date of Discharge 02/15/2017 Discharge Summary DATE OF ADMISSION: 02/12/2017 DATE OF DISCHARGE: 02/15/2017 PRIMARY CARE PHYSICIAN: Dr. Velasquez DISCHARGE DIAGNOS(E)S: Syncope, most likely secondary to dehydration Right spiral ankle fracture Elevated d-dimer HPI & HOSPITAL COURSE: 56-year-old female with history of silent CVAs, fibromyalgia, bipolar disorder, restless leg syndrome who presented to the emergency department after experiencing to 7 episodes of syncope this morning. The first one happened when she got out of bed quite suddenly, and the second one happened as she was arriving in the bathroom. During one of these episodes, the fall resulted in a right spiral ankle fracture. 1. Right spiral ankle fracture: Management as per orthopedics; they are currently recommending casting in their office to replace the splint they have on it at this time; NWB x6 weeks 2. Syncope: Etiology is unclear at this time but I suspect dehydration. She had never experienced syncope prior to this episode. There was no evidence of orthostasis in the emergency department, although her creatinine was slightly elevated at 1.29. Her telemetry has not shown any evidence of arrhythmia or bradycardia, and an EKG and troponins are unremarkable. An echocardiogram completed in August of last year showed preserved ejection fraction, grade 1 diastolic dysfunction, no evidence of significant valvular disease. The history is not consistent with any sort of seizure. Given her new symptoms of numbness in her hand, and her history of silent CVAs, we checked an MRI, which did not show any acute changes. While here, her BP was low, so she received more IVF. We saw a return in her kidney function to normal after the IVF, and her BP came up as well. She was not orthostatic on discharge. 3. Elevated d-dimer: CTA does not show any evidence of pulmonary embolism. 4. Fibromyalgia, Bipolar disorder: Continue home Topamax, Seroquel, Wellbutrin, gabapentin, trazodone 5. Restless leg syndrome: Continue home Requip. DVT prophylaxis: Heparin PHYSICAL EXAMINATION ON DISCHARGE: VITAL SIGNS: Vital Signs Date Time Temp Pulse Resp B/P Pulse Ox O2 Delivery O2 Flow Rate FiO2 02/15/17 08:34 Room Air 02/15/17 08:00 98.1 75 18 121/71 99 General: Awake, alert, no acute distress HEENT: Normal cephalic, atraumatic, extraocular movements intact CV: Regular rate and rhythm, no murmurs rubs or gallops Lungs: Clear To auscultation bilaterally Abd: Soft, Nontender, nondistended Extremities: Right ankle is splinted, no edema of the left ankle Neuro: Alert and oriented 3, finger to nose intact, no facial droop, no obvious deficits in any extremities, noting that examination of the right lower extremity is limited Psych: Normal mood and affect DISPOSITION: Home DISCHARGE INSTRUCTIONS: PCP within one week. [facility] within 1 week. Nonweightbearing on right lower extremity for 6 weeks If symptoms return, or if you experience worsening of your symptoms, please call your doctor or return to the emergency department. ITEMS THAT NEED OUTPATIENT FOLLOWUP: Patient will have leg casted at her follow-up appointment with orthopedics Patient was seen and examined by me on the day of discharge, and I spent a total time of greater than 30 minutes on this discharge. Vital Signs/I&Os Vital Signs Date Time Temp Pulse Resp B/P Pulse Ox O2 Delivery O2 Flow Rate FiO2 02/15/17 08:34 Room Air 02/15/17 08:00 98.1 75 18 121/71 99 I&O- Last 24 Hours up to 6 AM 02/15/17 05:59 Intake Total 3038 ml Output Total 1150 ml Balance 1888 ml Laboratory Data Labs 24H Laboratory Tests 2 02/15/17 05:57: Anion Gap 4L, Blood Urea Nitrogen 10, Creatinine 0.96, Sodium Level 144, Potassium Level 3.9, Chloride Level 117H, Carbon Dioxide Level 23, Calcium Level 8.2L, Glomerular Filtration Rate > 60.0, Magnesium Level 2.4 CBC/BMP Laboratory Tests 02/15/17 05:57 Calcium Level 8.2 L, Red Blood Count 4.02, Mean Corpuscular Volume 94.4, Mean Corpuscular Hemoglobin 30.8, Mean Corpuscular Hemoglobin Concent 32.6, Red Cell Distribution Width 12.8 Discharge Medications Scheduled Aspirin (Aspirin) 81 Mg Tab 81 MG PO DAILY (Reported) Biotin (Vitamin H) (Biotin) 1,000 Mcg Tab 1,000 MCG PO DAILY (Reported) Bupropion HCl (Bupropion HCl Xl) 300 Mg Tab 300 MG PO DAILY (Reported) Cetirizine HCl (Zyrtec Allergy) 10 Mg Tab 10 MG PO QHS (Reported) Gabapentin (Gabapentin) 300 Mg Cap 300 MG PO TID (Reported) Multivitamins *[facility]* (Thera M Plus *[facility]*) 1 Tab Tab 1 TAB PO DAILY (Reported) Quetiapine Fumerate (Seroquel) 100 Mg Tab 100 MG PO QHS (Reported) Ropinirole Hydrochloride (Ropinirole HCl) 1 Mg Tab 4 MG PO QHS (Reported) Topiramate (Topiramate) 100 Mg Tab 100 MG PO BID (Reported) Trazodone HCl (Trazodone HCl) 100 Mg Tab 100 MG PO QHS (Reported) Scheduled PRN Acetaminophen (Tylenol) 325 Mg Tab 650 MG PO Q4H PRN PRN PAIN (Reported) Oxycodone/Acetaminophen (Percocet 5MG/325MG Tablet) 1 Tab Tab 1-2 TAB PO Q4HP PRN PRN PAIN Tramadol HCl (Tramadol HCl) 50 Mg Tab 50 MG PO Q6H PRN PRN PAIN (Reported) Allergies Coded Allergies: Morphine (Unverified Adverse Reaction, Mild, ALL OPIATES-VOMITING, 09/04/16 ) Clarithromycin (Unverified Adverse Reaction, Unknown, VOMITING , 09/04/16) Penicillins (Unverified Adverse Reaction, Unknown, HIVES, 09/04/16) Sulfa Antibiotics (Unverified Adverse Reaction, Unknown, HIVES, 09/04/16) ALYSON NANCE Feb 15, 2017 16:48
== END 2017-02-15 15:27 | disposition home or self-care (01) | DRG 342 ==
LOC: M ED 08:37 → M ED INP 11:13 → M PCU 02-13 15:30
PROVIDERS: ADMIT Hospitalist; ATTEND Hospitalist
DX: S82.54XA Nondisplaced fracture of medial malleolus of right tibia, initial encounter for closed fracture (principal); N17.9 Acute kidney failure, unspecified; R55 Syncope and collapse; M79.7 Fibromyalgia; F31.9 Bipolar disorder, unspecified; Z86.73 Personal history of transient ischemic attack (TIA), and cerebral infarction without residual deficits; W18.30XA Fall on same level, unspecified, initial encounter; Y92.002 Bathroom of unspecified non-institutional (private) residence as the place of occurrence of the external cause; G25.81 Restless legs syndrome; Z79.899 Other long term (current) drug therapy; Z88.0 Allergy status to penicillin; Z88.2 Allergy status to sulfonamides; Z88.8 Allergy status to other drugs, medicaments and biological substances

== ENCOUNTER 2018-01-27 16:40 | Emergency (ER) | payer OTHER, BC | END 2018-01-27 18:01 | disposition home or self-care (01) | LOC: M ED 16:40 | DX: S83.411A Sprain of medial collateral ligament of right knee, initial encounter (principal); X50.1XXA Overexertion from prolonged static or awkward postures, initial encounter; Y92.89 Other specified places as the place of occurrence of the external cause | CPT/HCPCS: 73564 ==

== ENCOUNTER → 2018-05-23 | Outpatient (REF) | payer BC ==
[2018-05-23 16:20] LABS: BASO % 0.7 % (0.0-1.0); EOS % 0.7 % (0.0-3.0); HEMATOCRIT 42.5 % (36.0-47.0); HEMOGLOBIN 14.1 g/dl (12.0-15.5); IMMATURE GRANULOCYTE % 0.2 % (0-3.0); LYMPH # 1.7 10^3/uL (1.5-4.5); LYMPH % 30.7 % (24.0-44.0); MEAN CORPUSCULAR HEMOGLOBIN 31.3 pg (27.0-33.0); MEAN CORPUSCULAR HGB CONC 33.2 g/dl (32.0-36.5); MEAN CORPUSCULAR VOLUME 94.4 fl (80.0-96.0); MONO # 0.5 10^3/uL (0.0-0.8); MONO % 8.2 % (0.0-5.0); NEUTROPHILS # 3.3 10^3/uL (1.8-7.7); NEUTROPHILS % 59.5 % (36.0-66.0); PLATELET COUNT, AUTOMATED 232 10^3/uL (150-450); RED CELL DISTRIBUTION WIDTH 12.8 % (11.5-14.5); WHITE BLOOD COUNT 5.5 10^3/uL (4.0-10.0)
[2018-05-23 16:29] LABS: ALBUMIN 4.3 GM/DL (3.2-5.2); ALBUMIN/GLOBULIN RATIO 1.48 (1.00-1.93); ALKALINE PHOSPHATASE 91 U/L (45-117); ALT/SGPT 26 U/L (12-78); ANION GAP 7 MEQ/L (8-16); AST/SGOT 15 U/L (7-37); BILIRUBIN,TOTAL 0.2 MG/DL (0.2-1.0); BLOOD UREA NITROGEN 12 MG/DL (7-18); CALCIUM LEVEL 8.9 MG/DL (8.5-10.1); CARBON DIOXIDE LEVEL 26 MEQ/L (21-32); CHLORIDE LEVEL 112 MEQ/L (98-107); CREATININE FOR GFR 1.23 MG/DL (0.55-1.30); GLOMERULAR FILTRATION RATE 47.7 (>51); GLUCOSE, FASTING 102 MG/DL (70-100); POTASSIUM SERUM 4.3 MEQ/L (3.5-5.1); SODIUM LEVEL 145 MEQ/L (136-145); TOTAL PROTEIN 7.2 GM/DL (6.4-8.2)
== END ==
LOC: M LABDRAW1 14:01
DX: R55 Syncope and collapse (principal)

== ENCOUNTER → 2018-08-02 | Outpatient (CLI) | payer BC | LOC: M WUC 16:40 | DX: M17.12 Unilateral primary osteoarthritis, left knee (principal) | CPT/HCPCS: 73564 ==

== ENCOUNTER → 2018-11-21 | Outpatient (REF) | payer BC ==
[~2018-11-21] MED LIST changes: +ASPI1TAB15 PO; +ASPI81CH40 PO; -ASPI81TA PO; -BIOT10005 PO; +BIOT10008 PO; +BUPR300T34 PO; -CYCL5TA PO; +CYCL5TAB PO; +GABA-1171 PO; -GABA-279 PO; -GABA-282 PO; +GABA-843 PO; +IBUP-1022 PO; +PERCOCET PO; +TOPA1TAB PO; -TOPA25TA10 PO; +TOPI100T9 PO; +TRAZ-163 PO; +VOLT1GEL15 TOP; -VOLT1GEL24 TOP; +ZYRT10CA5 PO; -ZYRT10TA2 PO
== END ==
LOC: M LAB REF 16:40
PROVIDERS: ATTEND Physician Assistant
DX: N39.0 Urinary tract infection, site not specified (principal)

== ENCOUNTER → 2019-01-08 | Outpatient (CLI) | payer BC ==
[2019-01-08 20:04] LABS: RHEUMATOID FACTOR QUANT < 10.0 IU/ML (<15.0)
[2019-01-08 20:07] LABS: BASO % 0.6 % (0.0-1.0); EOS # 0.1 10^3/uL (0.0-0.50); EOS % 0.8 % (0.0-3.0); HEMATOCRIT 42.7 % (36.0-47.0); LYMPH # 1.5 10^3/uL (1.5-4.5); LYMPH % 22.5 % (24.0-44.0); MEAN CORPUSCULAR HEMOGLOBIN 30.4 pg (27.0-33.0); MEAN CORPUSCULAR HGB CONC 32.8 g/dl (32.0-36.5); MEAN CORPUSCULAR VOLUME 92.8 fl (80.0-96.0); MONO # 0.5 10^3/uL (0.0-0.8); MONO % 7.3 % (0.0-5.0); NEUTROPHILS # 4.4 10^3/uL (1.8-7.7); NEUTROPHILS % 68.6 % (36.0-66.0); PLATELET COUNT, AUTOMATED 249 10^3/uL (150-450); WHITE BLOOD COUNT 6.4 10^3/uL (4.0-10.0)
[2019-01-08 20:29] LABS: ERYTHROCYTE SEDIMENTATION RATE 9 mm/hr (0-30)
[2019-01-15 00:09] LABS: ANCA-ATYPICAL <1:20 titer (Neg:<1:20); ANTINUCLEAR ANTIBODIES DIRECT Negative (Negative); CYTOPLASMIC NEUTROP AB ANCA-C <1:20 titer (Neg:<1:20); HLA-B27 Negative (.); Lyme Disease IgG/IgM Antibodie <0.91 ISR (0.00-0.90); Lyme Disease IgM Ab Quantitati <0.80 index (0.00-0.79); PERINUCLEAR AB ANCA-P <1:20 titer (Neg:<1:20)
== END ==
LOC: M WUC 15:36
PROVIDERS: ATTEND Optometrist
DX: H20.00 Unspecified acute and subacute iridocyclitis (principal)

== ENCOUNTER → 2019-05-03 | Outpatient (CLI) | payer BC ==
[~2019-05-03] MED LIST changes: +ASPI81CH36 PO; -ASPI81CH40 PO
--- NOTE | 2019-05-03 16:40 | REP ---
Clinical: Acute chest pain and cough . Comparison: 02/12/2017 . Technique: PA and lateral. Findings: The mediastinum and cardiac silhouette are normal. The lung wyatt are clear and without acute consolidation, effusion, or pneumothorax. The skeletal structures are intact and normal. Impression: 1. No acute cardiopulmonary process. Electronically Signed by Javier Alejandre MD 05/03/2019 04:32 P
== END ==
LOC: M WUC 16:20
PROVIDERS: ATTEND Physician Assistant
DX: R05 Cough (principal); R07.1 Chest pain on breathing

== ENCOUNTER → 2019-09-05 | Outpatient (CLI) | payer BC ==
[2019-09-05 12:35] LABS: BASO % 0.9 % (0.0-1.0); EOS # 0.1 10^3/uL (0.0-0.5); EOS % 2.6 % (0.0-3.0); LYMPH # 1.2 10^3/uL (1.5-5.0); LYMPH % 27.1 % (24.0-44.0); MEAN CORPUSCULAR HEMOGLOBIN 30.4 pg (27.0-33.0); MEAN CORPUSCULAR HGB CONC 32.6 g/dl (32.0-36.5); MEAN CORPUSCULAR VOLUME 93.3 fl (80.0-96.0); MONO # 0.3 10^3/uL (0.0-0.8); MONO % 6.8 % (0.0-5.0); NEUTROPHILS # 2.7 10^3/uL (1.5-8.5); NEUTROPHILS % 62.4 % (36.0-66.0); PLATELET COUNT, AUTOMATED 239 10^3/uL (150-450); RED BLOOD COUNT 4.61 10^6/uL (4.00-5.40); WHITE BLOOD COUNT 4.3 10^3/uL (4.0-10.0)
[2019-09-05 12:39] LABS: APPEARANCE, URINE HAZY (CLEAR); BACTERIA, URINE AUTO NEGATIVE (NEGATIVE); BILIRUBIN, URINE AUTO NEGATIVE (NEGATIVE); BLOOD, URINE BLOOD NEGATIVE (NEGATIVE); COLOR, URINE YELLOW (YELLOW); GLUCOSE, URINE (UA) AUTO NEGATIVE (NEGATIVE); KETONE, URINE AUTO NEGATIVE (NEGATIVE); LEUKOCYTE ESTERASE, URINE AUTO 1+ (NEGATIVE); MUCUS, URINE SMALL (NEGATIVE); NITRITE, URINE AUTO NEGATIVE (NEGATIVE); PROTEIN, URINE AUTO NEGATIVE (NEGATIVE); RBC, URINE AUTO 2 /HPF (0-3); SPECIFIC GRAVITY URINE AUTO 1.023 (1.002-1.035); SQUAMOUS EPITHELIAL CELL UR AU 5 /HPF (0-6); UROBILINOGEN, URINE AUTO 0.2 mg/dL (0.0-2.0); WBC, URINE AUTO 2 /HPF (0-3)
[2019-09-05 12:44] LABS: ALT/SGPT 23 U/L (12-78); BILIRUBIN,TOTAL 0.3 MG/DL (0.2-1.0); BLOOD UREA NITROGEN 13 MG/DL (7-18); C REACTIVE PROTEIN QUANTITATIV < 0.30 MG/DL (0.00-0.30); CALCIUM LEVEL 9.2 MG/DL (8.5-10.1); CARBON DIOXIDE LEVEL 22 MEQ/L (21-32); CHLORIDE LEVEL 117 MEQ/L (98-107); COMPLEMENT C3 117 MG/DL (90-180); COMPLEMENT C4 20 MG/DL (10-40); CREATININE FOR GFR 1.34 MG/DL (0.55-1.30); GLOMERULAR FILTRATION RATE 43.1 (>51); GLUCOSE, FASTING 93 MG/DL (70-100); POTASSIUM SERUM 3.9 MEQ/L (3.5-5.1); RHEUMATOID FACTOR QUANT < 10.0 IU/ML (<15.0); SODIUM LEVEL 144 MEQ/L (136-145)
[2019-09-05 13:04] LABS: TOTAL PROTEIN,RANDOM URINE 28.7 MG/DL (0.0-12.0)
[2019-09-05 13:28] LABS: ERYTHROCYTE SEDIMENTATION RATE 8 mm/hr (0-30)
[2019-09-06 10:34] LABS: HEPATITIS B SURFACE ANTIBODY NEGATIVE (POSITIVE)
[2019-09-06 10:43] LABS: HEPATITIS B SURFACE ANTIGEN NEGATIVE (NEGATIVE)
== END ==
LOC: M WUC 09:49
PROVIDERS: ATTEND Internal Medicine Rheumatology
DX: H20.9 Unspecified iridocyclitis (principal); H15.009 Unspecified scleritis, unspecified eye

== ENCOUNTER → 2019-10-15 | Outpatient (CLI) | payer BC ==
[2019-10-15 12:33] LABS: BASO # 0.1 10^3/uL (0.0-0.2); EOS % 0.8 % (0.0-3.0); HEMATOCRIT 44.6 % (36.0-47.0); HEMOGLOBIN 14.3 g/dl (12.0-15.5); LYMPH # 1.2 10^3/uL (1.5-5.0); LYMPH % 24.5 % (24.0-44.0); MEAN CORPUSCULAR HEMOGLOBIN 30.6 pg (27.0-33.0); MEAN CORPUSCULAR HGB CONC 32.1 g/dl (32.0-36.5); MEAN CORPUSCULAR VOLUME 95.5 fl (80.0-96.0); MONO # 0.4 10^3/uL (0.0-0.8); MONO % 7.2 % (0.0-5.0); NEUTROPHILS # 3.2 10^3/uL (1.5-8.5); NEUTROPHILS % 66.3 % (36.0-66.0); PLATELET COUNT, AUTOMATED 227 10^3/uL (150-450); RED BLOOD COUNT 4.67 10^6/uL (4.00-5.40); WHITE BLOOD COUNT 4.9 10^3/uL (4.0-10.0)
[2019-10-15 12:41] LABS: ALBUMIN 4.3 GM/DL (3.2-5.2); BILIRUBIN,TOTAL 0.2 MG/DL (0.2-1.0); CREATININE FOR GFR 1.29 MG/DL (0.55-1.30); POTASSIUM SERUM 4.7 MEQ/L (3.5-5.1); TOTAL PROTEIN 7.1 GM/DL (6.4-8.2)
== END ==
LOC: M WUC 09:33
PROVIDERS: ATTEND Internal Medicine Rheumatology
DX: R89.9 Unspecified abnormal finding in specimens from other organs, systems and tissues (principal)

== ENCOUNTER 2020-02-10 11:21 | Observation (INO) | payer BC ==
[~2020-02-10 11:21] MED LIST changes: +ASPI81CH32 PO; -ASPI81CH36 PO; -BUPR300T34 PO; +BUPR300T92 PO; -ROPI1TAB PO; +ROPI1TAB3 PO; -TRAZ-163 PO; +TRAZ-257 PO
--- NOTE | 2020-02-10 11:55 | REP ---
CT BRAIN WITHOUT CONTRAST: CT brain performed without IV contrast. Ventricles are normal in size and position with no midline shift of mass effect. Powell-white differentiation is well maintained. There is no acute intracranial hemorrhage or extra-axial fluid collection. There appear to be old small vessel ischemic changes in the periventricular white matter bilaterally. Bone window examination is unremarkable. IMPRESSION: No acute intracranial hemorrhage or other acute intracranial finding. No midline shift or mass effect. Electronically Signed by Keagan Powell MD 02/10/2020 12:57 P
--- NOTE | 2020-02-10 11:56 | REP ---
CHEST, SINGLE VIEW: There is no evidence of acute infiltrate. No pleural effusion is seen. The heart is normal in size. The mediastinal silhouette is unremarkable. The visualized osseous structures are intact. IMPRESSION: No acute pulmonary disease. Electronically Signed by Keagan Powell MD 02/10/2020 12:57 P
[2020-02-10 12:15] LABS: BASO % 0.8 % (0.0-1.0); EOS # 0.1 10^3/uL (0.0-0.5); EOS % 1.8 % (0.0-3.0); HEMATOCRIT 42.7 % (36.0-47.0); HEMOGLOBIN 14.4 g/dl (12.0-15.5); LYMPH # 1.6 10^3/uL (1.5-5.0); LYMPH % 31.9 % (24.0-44.0); MEAN CORPUSCULAR HEMOGLOBIN 31.4 pg (27.0-33.0); MEAN CORPUSCULAR HGB CONC 33.7 g/dl (32.0-36.5); MEAN CORPUSCULAR VOLUME 93.2 fl (80.0-96.0); MONO # 0.4 10^3/uL (0.0-0.8); MONO % 8.5 % (0.0-5.0); NEUTROPHILS # 2.9 10^3/uL (1.5-8.5); NEUTROPHILS % 56.8 % (36.0-66.0); PLATELET COUNT, AUTOMATED 237 10^3/uL (150-450); RED BLOOD COUNT 4.58 10^6/uL (4.00-5.40)
[2020-02-10 12:28] LABS: PROTHROMBIN TIME 12.9 SECONDS (11.8-14.0)
[2020-02-10 12:29] LABS: PARTIAL THROMBOPLASTIN TIME 28.6 SECONDS (25.0-38.4)
[2020-02-10 12:38] LABS: ALBUMIN 3.9 GM/DL (3.2-5.2); ALT/SGPT 30 U/L (12-78); BILIRUBIN,DIRECT < 0.1 MG/DL (0.0-0.2); BILIRUBIN,TOTAL 0.3 MG/DL (0.2-1.0); BLOOD UREA NITROGEN 18 MG/DL (7-18); CALCIUM LEVEL 8.5 MG/DL (8.5-10.1); CARBON DIOXIDE LEVEL 21 MEQ/L (21-32); CHLORIDE LEVEL 114 MEQ/L (98-107); CK-MB VALUE MASS 1.7 NG/ML (<3.6); CPK CREATINE PHOSPHOKINASE 114 U/L (26-192); CREATININE FOR GFR 1.13 MG/DL (0.55-1.30); GLOMERULAR FILTRATION RATE 52.5 (>51); GLUCOSE, FASTING 113 MG/DL (70-100); MB/CK RELATIVE INDEX 1.49 (< OR =4); SODIUM LEVEL 142 MEQ/L (136-145); TOTAL PROTEIN 7.1 GM/DL (6.4-8.2); TROPONIN I < 0.02 NG/ML (< 0.10)
[2020-02-10] MEDS ORDERED: ALL10TAB29 PO (12:44)
[2020-02-10] MEDS ORDERED: ROPI4TAB3 PO (12:44)
[2020-02-10] MEDS ORDERED: ASPIRIN 325 MG TAB PO ONE (13:15)
[2020-02-10 16:00] VITALS: BP 139/77
--- NOTE | 2020-02-10 16:46 | REP ---
MRI BRAIN WITHOUT CONTRAST: Multiple sequences obtained in the sagittal and axial planes without the use of intravenous contrast. Ventricles are normal in size and position. There is no midline shift or mass effect. Powell-white differentiation is well maintained. There are foci of chronic small vessel ischemic change/gliosis in the periventricular white matter bilaterally. These findings are essentially unchanged compared to prior study of 02/13/2017. There is no acute infarct. There is no midline shift or mass effect. 7th and 8th cranial nerve complexes are unremarkable. Brain stem and cerebellum are unremarkable. IMPRESSION: Chronic periventricular small vessel disease/gliosis appears similar to 02/13/2017. No acute infarct. Electronically Signed by Keagan Powell MD 02/10/2020 07:50 P
--- NOTE | 2020-02-10 17:04 | REP ---
MRA BRAIN : MRA brain is performed utilizing 3D [id number] imaging with MIP reconstruction images. There is patent and symmetrical flow through both carotid siphons. Anterior communicating arteries are patent. There is symmetrical perfusion of patent anterior and middle cerebral arteries with no evidence for intracranial arterial stenosis. There are patent bilateral posterior communicating arteries. Right vertebral artery is dominant. There is somewhat hypoplastic distal basilar artery which feeds the left posterior vertebral artery, as does the left posterior communicating artery. Right posterior cerebral artery is fed by the right posterior communicating artery. Both posterior cerebral arteries are patent and symmetrical in appearance. I see no aneurysm or AVN. IMPRESSION: Patent intracranial vasculature with no evidence for intracranial arterial stenosis. No change from the prior study of 09/04/2016. Electronically Signed by Keagan Powell MD 02/10/2020 07:50 P
--- NOTE | 2020-02-10 18:06 | REP ---
CAROTID ULTRASOUND: Real-time ultrasound evaluation and duplex Doppler interrogation of the extracranial carotid vasculature is performed. There is mild plaquing and narrowing in both carotid bulbs extending into the internal and external carotid arteries. Luminal narrowing is less than 50%. There is no evidence of hemodynamically significant stenosis of either internal carotid artery. Normal flow velocities are seen. The vertebral arteries demonstrate normal direction of flow. RIGHT LEFT Peak systolic velocity ICA 73 cm/s 87.2 cm/s End diastolic velocity ICA 30 cm/s 30.5 cm/s Peak systolic velocity CCA 113 cm/s 106 cm/s Peak systolic velocity ECA 101 cm/s 76.8 cm/s ICA/CCA ratio 0.65 0.82 IMPRESSION: Bilateral luminal narrowing of the internal carotid arteries less than 50%. No evidence of hemodynamically significant stenosis. Electronically Signed by Keagan Powell MD 02/10/2020 05:57 P
--- NOTE | 2020-02-10 18:42 | HPEPDOC ---
[facility] Medical History & Physical Date of Admission Feb 10, 2020 Date of Service: Feb 10, 2020 Attending Physician: NABIL MANZO MD History and Physical CHIEF COMPLAINT: Left side of face & left foot feels heavy HISTORY OF PRESENT ILLNESS: 59 y.o female w/ PMH of Bipolar disorder, chronic headaches & TIA presents with L facial & L foot "heaviness". Her symptoms started last night, has had similar episode 3-4 years ago, follows with Dr. Malagon (Neurologist) since then, was told she had a TIA and neurological workup was negative at that time. Patient reports persistence of symptoms at this time, no associated symptoms, denies any weakness/numbness. She underwent CT head in the ED which was negative, Dr. Malagon was consulted by ER provider who recommended admission & workup for TIA/CVA. Patient is otherwise comfortable at this time, no additional complaints. She denies any SOB, CP, N/V/D or abdominal pain at this time. 10 point review of system is negative except for above. PAST MEDICAL HISTORY: 1. Bipolar disorder 2. Insomnia 3. chronic headaches PAST SURGICAL HISTORY: 1. Hysterectomy 2. Clavicle surgery 3. Joint replacement SOCIAL HISTORY: Never smoker social alcohol use denies drug use FAMILY HISTORY: Mother had heart disease ALLERGIES: Please see below. HOME MEDICATIONS: Please see below. PHYSICAL EXAMINATION: VITAL SIGNS: See below GENERAL APPEARANCE: No distress HEENT: moist mucus membranes CARDIOVASCULAR: S1, S2, no murmurs LUNGS: clear to auscultation ABDOMEN: soft, non-tender, non-distended, +BS EXTREMITIES: ROM intact NEUROLOGICAL: A&O x3, no sensory deficits appreciated, minimal LLE weakness appreciated compared to right side. PSYCHIATRIC: calm & cooperative LABORATORY DATA: See below. IMAGING: MRI negative for acute CVA MICROBIOLOGY: Please see below. ASSESSMENT: 59 y.o female w/ PMH of Bipolar disorder, Insomnia, chronic headaches & TIA is admitted for TIA workup. PLAN: 1. Possible TIA - Imaging (CT/MRI/MRA/Carotid US) negative for acute pathology, s/p Aspirin 325 mg in the ED, continue aspirin 81 mg daily, PT/OT, TTE pending, Lipid panel in the morning, Neurology eval pending. 2. Bipolar disorder - continue Seroquel 3. Restless leg syndrome - continue Requip 4. Chronic headaches - continue Topamax 5. Insomnia - continue Trazodone DVT Prophylaxis - Lovenox GI Prophylaxis - not needed Vital Signs Vital Signs Date Time Temp Pulse Resp B/P (MAP) Pulse Ox O2 Delivery O2 Flow Rate FiO2 02/10/20 16:00 98.1 76 20 139/77 (97) 98 Room Air 77 Laboratory Data Labs 24H Laboratory Tests 2 02/10/20 11:53: Immature Granulocyte % (Auto) 0.2, Neutrophils (%) (Auto) 56.8, Lymphocytes (%) (Auto) 31.9, Monocytes (%) (Auto) 8.5H, Eosinophils (%) (Auto) 1.8, Basophils (%) (Auto) 0.8, Neutrophils # (Auto) 2.9, Lymphocytes # (Auto) 1.6, Monocytes # (Auto) 0.4, Eosinophils # (Auto) 0.1, Basophils # (Auto) 0.0, Nucleated Red Blood Cells % (auto) 0.0, Prothrombin Time 12.9, Prothromb Time International Ratio 1.00, Activated Partial Thromboplast Time 28.6, Anion Gap 7L, Glomerular Filtration Rate 52.5, Calcium Level 8.5, Total Bilirubin 0.3, Direct Bilirubin < 0.1, Aspartate Amino Transf (AST/SGOT) 17, Alanine Aminotransferase (ALT/SGPT) 30, Alkaline Phosphatase 97, Total Creatine Kinase 114, Creatine Kinase MB 1.7, Creatine Kinase MB Relative Index 1.49, Troponin I < 0.02, Total Protein 7.1, Albumin 3.9, Albumin/Globulin Ratio 1.22 CBC/BMP Laboratory Tests 02/10/20 11:53 Home Medications Scheduled Aspirin (Aspirin EC) 81 Mg Tab, 81 MG PO DAILY Cetirizine HCl (Cetirizine HCl) 10 Mg Tablet, 10 MG PO QHS Quetiapine Fumarate (Seroquel) 100 Mg Tab, 100 MG PO QHS Ropinirole HCl (Ropinirole HCl) 4 Mg Tablet, 4 MG PO QHS Topiramate (Topiramate) 100 Mg Tab, 100 MG PO BID Trazodone HCl (Trazodone HCl) 100 Mg Tab, 100 MG PO QHS Allergies Coded Allergies: Penicillins (Verified Allergy, Intermediate, HIVES, 02/10/20) Sulfa (Sulfonamide Antibiotics) (Verified Allergy, Intermediate, HIVES, 02/10/20) clarithromycin (Verified Adverse Reaction, Mild, VOMIT, 02/10/20) morphine (Verified Adverse Reaction, Mild, VOMIT, 02/10/20) ALL OPIODS A-FIB/CHADSVASC A-FIB History Current/History of A-Fib/PAF?: No NABIL MANZO MD Feb 10, 2020 18:42
--- NOTE | 2020-02-10 19:01 | CR ---
DATE OF CONSULTATION: 02/10/2020 REFERRING PHYSICIAN: Dr. Del Angel REASON FOR CONSULTATION: Left-sided facial pain, weakness, and left arm and leg weakness. HISTORY OF PRESENT ILLNESS: Lizz Singer is a 56-year-old woman who went to see her primary care physician this morning because she developed left-sided temporal and facial pain. The patient's primary care physician on her physical examination noted that she may have left-sided facial weakness and heaviness of left arm and leg with weakness. The patient was sent to [facility] for evaluation of possible stroke. In the emergency department, Dr. Barrera noted that the patient may have drift of her left arm and leg. The patient was admitted for stroke workup. The patient denies any numbness of arms and legs. She denies dysphagia, dysarthria, diplopia or urinary incontinence. The patient history of chronic headaches, restless leg syndrome, small-vessel ischemic disease of brain, and bipolar disorder. PAST MEDICAL HISTORY: 1. Fibromyalgia. 2. Bipolar disorder. 3. Restless leg syndrome. 4. Small-vessel ischemic disease of brain and lacunar strokes. 5. Chronic migraines. CURRENT MEDICATIONS: - aspirin 81 mg by mouth daily - Seroquel 100 mg by mouth at bedtime - Requip 4 mg by mouth at bedtime - Topamax 100 mg by mouth twice a day - trazodone 100 mg by mouth at bedtime - Lovenox 40 mg subcutaneous once a day - Zyrtec 10 mg by mouth daily SOCIAL HISTORY: She denies smoking, alcohol, or illicit drugs. FAMILY HISTORY: Noncontributory. ALLERGIES: PENICILLIN, SULFA, OPIATES, BIAXIN. REVIEW OF SYSTEMS: All systems were reviewed and found to be noncontributory except as mentioned in the history of present illness. PHYSICAL EXAMINATION: Blood pressure 148/96, 98% saturation on room air, pulse 78, respiratory rare 18. HEART: Regular rate and rhythm. LUNGS: Clear to auscultation. ABDOMEN: Soft, nontender, nondistended. No pedal edema. No musculoskeletal abnormalities. No rash. No signs of meningeal irritation. The patient is awake, alert, oriented to place, person and time. Normal speech, comprehension and repetition. Extraocular muscles are intact. No facial weakness. Tongue and uvula are midline. 5/5 strength in right arm and leg. Left arm and leg strength throughout is -5/5 with intermittent activation. Normal sensation bilaterally. No [id number] abnormality or dysmetria. No tremor. Gait was not tested. DIAGNOSTIC STUDIES: CBC and metabolic profile are normal. MRI, MRA brain reports are pending. I did not see acute disease on MRI scan of brain on my review. She has old small vessel disease. ASSESSMENT: 1. Left-sided facial and temporal pain with left-sided facial, arm and leg subjective weakness. 2. Rule out transient ischemic attack (TIA). 3. Chronic migraines. 4. Restless leg syndrome. 5. Small vessel ischemic disease of brain and old lacunar strokes. PLAN: 1. Echocardiogram and carotid ultrasound. 2. Await reports of MRI and MRA brain. 3. Aspirin 81 mg by mouth daily and trazodone 100 mg by mouth at bedtime. 4. Requip 4 mg by mouth at bedtime and Topamax 100 mg by mouth twice a day. 5. Physical and occupational therapy. 6. Continue telemetry monitoring. 7. Observe for any signs of shingles or left-sided Blas's palsy if it develops over the next couple of days. We will also check erythrocyte sedimentation rate (ESR) and C-reactive protein (CRP) to rule out remote possibility of temporal arteritis, although it does not present with acute pain and hemiparesis. 8. Follow with our office as planned. LINO
[2020-02-10] MEDS: TOPIRAMATE (TopAMAX) 100 MG TAB PO SCH (20:42)
[2020-02-10] MEDS: rOPINIRole 2MG TAB PO SCH (20:42)
[2020-02-10] MEDS: CETIRIZINE (ZyrTEC) 10 MG TAB PO SCH (20:43)
[2020-02-10] MEDS: traZODone 100 MG TAB PO SCH (20:43)
[2020-02-10] MEDS: ENOXAPARIN 40MG/0.4ML SYRINGE (J1650 PER 10MG) SC SCH (20:43)
[2020-02-10] MEDS: QUEtiapine FUMARATE 100 MG TAB PO SCH (20:43)
[2020-02-10 22:00] VITALS: BP 143/77
[2020-02-11 06:00] VITALS: BP 127/79
[2020-02-11 06:27] LABS: HEMATOCRIT 40.8 % (36.0-47.0); HEMOGLOBIN 13.7 g/dl (12.0-15.5); MEAN CORPUSCULAR HEMOGLOBIN 31.4 pg (27.0-33.0); MEAN CORPUSCULAR HGB CONC 33.6 g/dl (32.0-36.5); MEAN CORPUSCULAR VOLUME 93.6 fl (80.0-96.0); PLATELET COUNT, AUTOMATED 231 10^3/uL (150-450); RED BLOOD COUNT 4.36 10^6/uL (4.00-5.40)
[2020-02-11 06:29] LABS: ALBUMIN 3.4 GM/DL (3.2-5.2); ALT/SGPT 29 U/L (12-78); BILIRUBIN,TOTAL 0.3 MG/DL (0.2-1.0); BLOOD UREA NITROGEN 16 MG/DL (7-18); CALCIUM LEVEL 8.1 MG/DL (8.5-10.1); CARBON DIOXIDE LEVEL 22 MEQ/L (21-32); CHLORIDE LEVEL 115 MEQ/L (98-107); CHOLESTEROL LEVEL 163 MG/DL (<200); CHOLESTEROL RISK RATIO 4.289 (<5); CREATININE FOR GFR 1.22 MG/DL (0.55-1.30); GLUCOSE, FASTING 114 MG/DL (70-100); HDL CHOLESTEROL 38 MG/DL (>40); LDL CHOLESTEROL 94 MG/DL (<100); MAGNESIUM LEVEL 2.4 MG/DL (1.8-2.4); NON-HDL-C 125 MG/DL; POTASSIUM SERUM 4.2 MEQ/L (3.5-5.1); SODIUM LEVEL 144 MEQ/L (136-145); TOTAL PROTEIN 6.4 GM/DL (6.4-8.2); TRIGLYCERIDES LEVEL 153 MG/DL (<150)
[2020-02-11] MEDS: ASPIRIN 81 MG ENTERIC TAB PO SCH (08:33)
[2020-02-11] MEDS: TOPIRAMATE (TopAMAX) 100 MG TAB PO SCH ×2 (08:33→21:45)
--- NOTE | 2020-02-11 09:08 | ECGEPIP ---
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
[2020-02-11 09:18] LABS: C REACTIVE PROTEIN QUANTITATIV < 0.30 MG/DL (0.00-0.30)
[2020-02-11 09:37] LABS: ERYTHROCYTE SEDIMENTATION RATE 7 mm/hr (0-30)
[2020-02-11 14:00] VITALS: BP 137/79
--- NOTE | 2020-02-11 17:55 | IPNPDOC ---
Date Seen The patient was seen on 02/11/20. Progress Note SUBJECTIVE: 59 y.o female w/ PMH of Bipolar disorder, chronic headaches & TIA was admitted for stroke workup. Patient reports resolution of left foot weakness, continues to have weakness of left side of her face, denies any numbness, tingling. She has no other complaints at this time, no acute events overnight, comfortable in bed. She denies any chest pain, nausea, vomiting, abdominal pain, diarrhea or constipation. 10 point review of system is negative except for above. PHYSICAL EXAMINATION: VITAL SIGNS: See below GENERAL APPEARANCE: No distress HEENT: moist mucus membranes CARDIOVASCULAR: S1, S2, no murmurs LUNGS: clear to auscultation ABDOMEN: soft, non-tender, non-distended, +BS EXTREMITIES: ROM intact NEUROLOGICAL: A&O x3, no focal deficits appreciated PSYCHIATRIC: calm & cooperative LABORATORY DATA: See below. ASSESSMENT: 59 y.o female w/ PMH of Bipolar disorder, Insomnia, chronic headaches & TIA is admitted for CVA workup PLAN: 1. Possible TIA - Imaging (CT/MRI/MRA/Carotid US) negative for acute pathology, s/p Aspirin 325 mg in the ED, continue aspirin 81 mg daily, PT/OT eval appreciated, TTE pending, neurology eval appreciated. Patient is not cleared for discharge from PT standpoint at this time, can likely be discharged tomorrow. 2. Bipolar disorder - continue Seroquel 3. Restless leg syndrome - continue Requip 4. Chronic headaches - continue Topamax 5. Insomnia - continue Trazodone DVT Prophylaxis - Lovenox GI Prophylaxis - not needed VS, I&O, 24H, Fishbone Vital Signs/I&O Vital Signs Date Time Temp Pulse Resp B/P (MAP) Pulse Ox O2 Delivery O2 Flow Rate FiO2 02/11/20 14:00 97.9 74 18 137/79 (98) 98 Room Air 02/10/20 16:00 77 I&O- Last 24 Hours up to 6 AM 02/11/20 06:00 Intake Total 1255 ml Output Total 900 ml Balance 355 ml Laboratory Data 24H LABS Laboratory Tests 2 02/11/20 05:48: Nucleated Red Blood Cells % (auto) 0.0, Erythrocyte Sedimentation Rate 7, Anion Gap 7L, Glomerular Filtration Rate 48.0L, Calcium Level 8.1L, Magnesium Level 2.4, Total Bilirubin 0.3, Aspartate Amino Transf (AST/SGOT) 20, Alanine Aminotransferase (ALT/SGPT) 29, Alkaline Phosphatase 90, C-Reactive Protein, Quantitative < 0.30, Total Protein 6.4, Albumin 3.4, Albumin/Globulin Ratio 1.13, Triglycerides Level 153H, Total Cholesterol 163, LDL Cholesterol 94, Non- HDL Cholesterol (LDL + VLDL) 125, Total HDL Cholesterol 38L, Cholesterol/HDL Ratio 4.289 CBC/BMP Laboratory Tests 02/11/20 05:48 NABIL MANZO MD Feb 11, 2020 17:55
--- NOTE | 2020-02-11 20:12 | ECHO ---
DATE OF PROCEDURE: 02/11/2020 REFERRING PHYSICIAN: Dr. Del Angel INDICATION: Transient ischemic attack (TIA). Height 170 cm, weight 93 kg. DIMENSIONS: IVS: 1.0 LV: 3.7 LVPW: 1.2 LA: 3.5 Aorta: 3.0 IVC: 1.0 Mitral E wave velocity: 87 A wave: 90 E prime septal: 7.8 E prime lateral: 8.4 FINDINGS: The study is of acceptable technical quality. Patient is in sinus rhythm. Left ventricle is normal size and systolic function with estimated left ventricular ejection fraction (LVEF) approximately 60-65%. Borderline left ventricle hypertrophy is present. Right ventricle appears normal size and systolic function. Both atria appear normal. All four cardiac valves were reasonably well seen and appear grossly normal for her age. Inferior vena cava is normal size. No pericardial effusion is noted. Aortic root and aortic arch appear normal. Abdominal aorta was not well seen. Doppler interrogation reveals competent aortic, mitral, tricuspid and pulmonic taras. Mitral inflow pattern and tissue Doppler imaging of mitral annulus revealed grade 1 diastolic dysfunction. CONCLUSIONS: 1. Study is of acceptable technical quality, patient is in sinus rhythm. 2. Normal left ventricular (LV) size with borderline left ventricular hypertrophy (LVH), preserved LV systolic function and grade 1 diastolic dysfunction. 3. No significant valvular disease. 4. Likely normal central venous pressure. 5. Unable to estimate pulmonary artery pressure but no signs to suggest pulmonary hypertension. COMMENT: No obvious findings to explain TIA. Study seems to be suggestive of mild hypertensive heart disease.
[2020-02-11] MEDS: QUEtiapine FUMARATE 100 MG TAB PO SCH (21:45)
[2020-02-11] MEDS: rOPINIRole 2MG TAB PO SCH (21:45)
[2020-02-11] MEDS: ENOXAPARIN 40MG/0.4ML SYRINGE (J1650 PER 10MG) SC SCH (21:45)
[2020-02-11] MEDS: CETIRIZINE (ZyrTEC) 10 MG TAB PO SCH (21:45)
[2020-02-11] MEDS: traZODone 100 MG TAB PO SCH (21:45)
[2020-02-11 22:00] VITALS: BP 129/76
[2020-02-12 06:00] VITALS: BP 127/77
[2020-02-12] MEDS: ASPIRIN 81 MG ENTERIC TAB PO SCH (08:31)
[2020-02-12] MEDS: TOPIRAMATE (TopAMAX) 100 MG TAB PO SCH (08:31)
--- NOTE | 2020-02-12 19:09 | DS.PDOC ---
Discharge Summary General Date of Admission Feb 10, 2020 at 11:22 Date of Discharge 02/12/20 Attending Physician: NABIL MANZO MD Discharge Summary PROCEDURES PERFORMED DURING STAY: None. ADMITTING DIAGNOSES: 1. TIA. DISCHARGE DIAGNOSES: 1. TIA. COMPLICATIONS/CHIEF COMPLAINT: Left-Sided Weakness. HISTORY OF PRESENT ILLNESS: 59-year-old female with past medical history of bipolar disorder, TIA, and insomnia was admitted for left facial and left foot weakness, admitted for CVA workup. Patient's workup has all been negative including CT and MRI head, carotid ultrasound and echocardiogram. Patient is no longer displaying any neurological deficits, close to her baseline. Patient was invalid by neurology and outpatient follow-up is recommended. Patient was evaluated and cleared by physical therapy. Patient is hemodynamically stable for discharge at this time. HOSPITAL COURSE: As above. DISCHARGE MEDICATIONS: Please see below. ALLERGIES: Please see below. PHYSICAL EXAMINATION: VITAL SIGNS: See below GENERAL APPEARANCE: No distress HEENT: moist mucus membranes CARDIOVASCULAR: S1, S2, no murmurs LUNGS: clear to auscultation ABDOMEN: soft, non-tender, non-distended, +BS EXTREMITIES: ROM intact NEUROLOGICAL: A&O x3, no focal deficits appreciated PSYCHIATRIC: calm & cooperative LABORATORY DATA: Please see below. IMAGING: CT, MRI head, carotid ultrasound and echocardiogram negative for acute pathology PROGNOSIS: Fair ACTIVITY: As tolerated. DIET: Cardiac DISCHARGE PLAN: Follow with neurologist and PCP in 1-2 weeks DISPOSITION: Home with services. DISCHARGE INSTRUCTIONS: 1. As above. DISCHARGE CONDITION: Stable. TIME SPENT ON DISCHARGE: Greater than 28 minutes. Vital Signs/I&Os Vital Signs Date Time Temp Pulse Resp B/P (MAP) Pulse Ox O2 Delivery O2 Flow Rate FiO2 02/12/20 06:00 97.4 76 18 127/77 (94) 97 Room Air 02/10/20 16:00 77 I&O- Last 24 Hours up to 6 AM 02/12/20 06:00 Intake Total 1305 ml Output Total 2850 ml Balance -1545 ml Discharge Medications Scheduled Aspirin (Aspirin EC) 81 Mg Tab, 81 MG PO DAILY, (Reported) Cetirizine HCl (Cetirizine HCl) 10 Mg Tablet, 10 MG PO QHS, (Reported) Quetiapine Fumarate (Seroquel) 100 Mg Tab, 100 MG PO QHS, (Reported) Ropinirole HCl (Ropinirole HCl) 4 Mg Tablet, 4 MG PO QHS, (Reported) Topiramate (Topiramate) 100 Mg Tab, 100 MG PO BID, (Reported) Trazodone HCl (Trazodone HCl) 100 Mg Tab, 100 MG PO QHS, (Reported) Allergies Coded Allergies: Penicillins (Verified Allergy, Intermediate, HIVES, 02/10/20) Sulfa (Sulfonamide Antibiotics) (Verified Allergy, Intermediate, HIVES, 02/10/20) clarithromycin (Verified Adverse Reaction, Mild, VOMIT, 02/10/20) morphine (Verified Adverse Reaction, Mild, VOMIT, 02/10/20) ALL OPIODS NABIL MANZO MD Feb 12, 2020 19:09
== END 2020-02-12 14:30 | disposition home or self-care (01) ==
LOC: M ED 11:21 → M ED INP 11:22 → ENRESERVDT 15:13 → ENRESERVTM 15:13 → M MSPAV 15:42
PROVIDERS: ADMIT Internal Medicine; ATTEND Internal Medicine
DX: G45.9 Transient cerebral ischemic attack, unspecified (principal); F31.9 Bipolar disorder, unspecified; G47.00 Insomnia, unspecified; G25.81 Restless legs syndrome; R51 Headache; Z79.899 Other long term (current) drug therapy; Z79.82 Long term (current) use of aspirin; Z88.0 Allergy status to penicillin; Z88.2 Allergy status to sulfonamides; Z88.5 Allergy status to narcotic agent
CPT/HCPCS: 36415; 70450; 70544; 70551; 71045; 80048; 80053; 80061; 80076; 82550; 82553; 83735; 84484; 85025; 85027; 85610; 85652; 85730; 86140; 86850; 86900; 86901; 93005; 93041; 93306; 93880; 94760; 96372; 97161; 97530; 99285; J1650

== ENCOUNTER → 2020-04-01 | Outpatient (CLI) | payer BC ==
[~2020-04-01] MED LIST changes: +ALL10TAB29 PO; +ROPI4TAB3 PO
[2020-04-01 13:04] LABS: HEMOGLOBIN A1c 6.1 %
== END ==
LOC: M WUC 10:26
PROVIDERS: ATTEND Psychiatry & Neurology Psychiatry
DX: Z79.899 Other long term (current) drug therapy (principal)

== ENCOUNTER 2021-04-12 15:17 | Observation (INO) | payer BC ==
[~2021-04-12] VITALS: Ht 170.2 cm; Wt 98.3 kg
[~2021-04-12 15:17] MED LIST changes: -ALL10TAB29 PO; +ASPI-546 PO; -ASPI1TAB15 PO; +BUPR150T12 PO; -BUPR150T3 PO; +CETI-24 PO; +GABA-282 PO; -GABA-843 PO
[2021-04-12 16:12] LABS: BASO % 0.5 % (0.0-1.0); EOS # 0.1 10^3/uL (0.0-0.5); EOS % 0.6 % (0.0-3.0); HEMATOCRIT 45.7 % (36.0-47.0); LYMPH # 1.2 10^3/uL (1.5-5.0); LYMPH % 13.6 % (24.0-44.0); MEAN CORPUSCULAR HEMOGLOBIN 31.4 pg (27.0-33.0); MEAN CORPUSCULAR HGB CONC 32.8 g/dl (32.0-36.5); MEAN CORPUSCULAR VOLUME 95.8 fl (80.0-96.0); MONO # 0.5 10^3/uL (0.0-0.8); MONO % 5.9 % (2.0-8.0); NEUTROPHILS # 6.8 10^3/uL (1.5-8.5); NEUTROPHILS % 79.2 % (36.0-66.0); PLATELET COUNT, AUTOMATED 224 10^3/uL (150-450); RED BLOOD COUNT 4.77 10^6/uL (4.00-5.40); WHITE BLOOD COUNT 8.6 10^3/uL (4.0-10.0)
--- NOTE | 2021-04-12 16:17 | REPVR ---
PROCEDURE INFORMATION: Exam: CT Head Without Contrast Exam date and time: 04/12/2021 3:34 PM Age: 60 years old Clinical indication: Syncope and collapse TECHNIQUE: Imaging protocol: Computed tomography of the head without contrast. Radiation optimization: All CT scans at this facility use at least one of these dose optimization techniques: automated exposure control; mA and/or kV adjustment per patient size (includes targeted exams where dose is matched to clinical indication); or iterative reconstruction. COMPARISON: CT Head without contrast 02/10/2020 11:28 AM FINDINGS: Brain: Focal, chronic appearing lacunar infarct in the right caudate nucleus, new or evolved since the prior CT head study. No hemorrhage or edema seen. Cerebral ventricles: No ventriculomegaly. Paranasal sinuses: Visualized sinuses are unremarkable. No fluid levels. Mastoid air cells: The left mastoids are chronically underpneumatized. Bones/joints: Unremarkable. No acute fracture. Soft tissues: Unremarkable. IMPRESSION: No acute intracranial abnormality seen. Electronically signed by: Inna Muhammad On 04/12/2021 16:17:00 PM
--- NOTE | 2021-04-12 16:26 | REPVR ---
PROCEDURE INFORMATION: Exam: CT Cervical Spine Without Contrast Exam date and time: 04/12/2021 3:34 PM Age: 60 years old Clinical indication: Other: Syncope TECHNIQUE: Imaging protocol: Computed tomography images of the cervical spine without contrast. Radiation optimization: All CT scans at this facility use at least one of these dose optimization techniques: automated exposure control; mA and/or kV adjustment per patient size (includes targeted exams where dose is matched to clinical indication); or iterative reconstruction. COMPARISON: No relevant prior studies available. FINDINGS: Bones/joints: Reversal of the cervical lordosis may be positional or due to muscle spasm. No acute fracture seen. Disc height loss and spondylosis is [id number] from C4-C5 through C7-T1. Partially calcified right lateral canal disc extrusion at C5-C6 contributes to right lateral recess stenosis. Central spinal canal stenosis may be moderate at the C6-C7 level. Multilevel neural foraminal stenoses due to uncovertebral and facet arthropathy, in particular on the right at C3-C4 and C4-C5. Discs/Spinal canal/Neural foramina: See "Bones/joints" finding. Oropharynx: Asymmetric enlargement of the right lingual tonsil which effaces the right vallecular space, image 36 series 302. Lungs: Lung apices are normal. Soft tissues: Unremarkable. A right cervical rib demonstrates a pseudoarthrosis with the right 1st rib. IMPRESSION: 1. No cervical spine fracture seen. 2. Nonspecific asymmetric enlargement of the right lingual tonsil. Recommend direct visualization to exclude a mass. Electronically signed by: Inna Muhammad On 04/12/2021 16:26:34 PM
[2021-04-12 16:50] LABS: BLOOD UREA NITROGEN 13 MG/DL (7-18); CALCIUM LEVEL 8.8 MG/DL (8.8-10.2); CARBON DIOXIDE LEVEL 23 MEQ/L (21-32); CHLORIDE LEVEL 112 MEQ/L (98-107); CK-MB VALUE MASS < 1.0 NG/ML (<3.6); CPK CREATINE PHOSPHOKINASE 73 U/L (26-192); CREATININE FOR GFR 1.35 MG/DL (0.55-1.30); GLOMERULAR FILTRATION RATE 42.6 (>45); GLUCOSE, FASTING 98 MG/DL (70-100); MB/CK RELATIVE INDEX 1.37 (< OR =4); POTASSIUM SERUM 3.8 MEQ/L (3.5-5.1); SODIUM LEVEL 141 MEQ/L (136-145); TROPONIN I < 0.02 NG/ML (< 0.10)
--- NOTE | 2021-04-12 16:55 | ED PDOC ---
Post-Departure Follow-Up dr ribera faxed formal report of ct c spine for fu Marco Whipple MD Apr 12, 2021 16:55
[2021-04-12] MEDS ORDERED: BOOSTRIX/ADACEL VACCINE (DIPHTH/PERTUSS/ACELL/TETANUS) 0.5ML SYR IM ONE (17:00)
--- NOTE | 2021-04-12 17:08 | ECGEPIP ---
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
--- NOTE | 2021-04-12 17:33 | REP ---
INDICATION: trauma COMPARISON: Left knee 08/02/2018 and right knee 01/27/2018 TECHNIQUE: Five views FINDINGS: Tricompartmental marginal osteophytosis is seen bilaterally increased from the prior exam. There is bilateral medial compartmental narrowing right knee greater than left knee. There is bilateral asymmetric patellofemoral joint space narrowing left knee greater than right. No acute fracture, dislocation, or subluxation is seen. IMPRESSION: Chronic changes bilateral. <Electronically signed by Federico Milner > 04/12/21 [id number]
--- NOTE | 2021-04-12 17:35 | REP ---
INDICATION: trauma. COMPARISON: No prior left ankle for comparison. No prior postoperative right ankle for comparison. TECHNIQUE: Four views bilateral. FINDINGS: There has been previous ORIF on the right with internal fixation plate and multiple screws. The mortise is intact. There is no acute fracture. Chronic degenerative changes seen involving both medial and lateral malleoli. There are plantar and retrocalcaneal heel spurs. Plantar and retrocalcaneal heel spurs are seen on the left. There is no acute fracture, dislocation, or subluxation. The mortise is intact. IMPRESSION: Chronic changes bilateral <Electronically signed by Federico Milner > 04/12/21 [id number]
--- NOTE | 2021-04-12 18:16 | REP ---
INDICATION: syncope. COMPARISON: Multiple latest 02/10/2020 TECHNIQUE: PA and lateral views FINDINGS: The superior mediastinal structures are midline. The cardiac silhouette is unremarkable in size, shape, and position. The diaphragmatic surfaces of the lungs are regular, and the costophrenic angles are clear. The pulmonary wyatt are clear. The imaged osseous structures are intact. IMPRESSION: There is no acute cardiopulmonary disease. <Electronically signed by Federico Milner > 04/12/21 [id number]
[2021-04-12] MEDS ORDERED: MOM 30ML SUSPENSION UDC PO PRN (18:55)
[2021-04-12] MEDS ORDERED: ACETAMINOPHEN TAB 650MG DOSE (2X325MG) PO PRN (18:55)
[2021-04-12] MEDS ORDERED: MAALOX 30 ML SUSP *UDC PO PRN (18:55)
--- NOTE | 2021-04-12 19:01 | HPEPDOC ---
[facility] Medical History & Physical Date of Admission Apr 12, 2021 Date of Service: Apr 12, 2021 Attending Physician: ESTELLA LORD MD History and Physical CHIEF COMPLAINT: [60 y/o female presents with cc of 2 episodes of syncope today] HISTORY OF PRESENT ILLNESS: [This is a 60 y/o female with a pmh of TIA, migraine headaches, asthma and htn who presents to the emergency room today with her after experiencing two syncopal events, one of them resulting in her striking her head and suffering a scalp laceration. Patient states that the first episode occurred when she was retreiving her laundry from her dresser drawers she states she simply passed out and fell onto her knees and ankles. Patient states that she was not dizzy or experiencing any kind of chest pain or palpitations prior to the fall, and was not groggy after the fall. Patient states that later in the day, she was standing up out of her chair at the dining room table, when she again passed out. Patient states that this time she struck the back of her head off of the dining room table and suffered a laceration to her scalp. Again, patient states that she had no pre-syncope dizziness, chest pain, palpitations and no post fall grogginess. Patient states that at the moment, she is experiencing severe pain in her b/l knees and ankles and is asking for pain medication. Patient denies headaches, vision changes, weakness, slurred speech. Patient states that she has a history of passing out, and in the past she was worked up and diagnosed with transient ischemic attacks at that time.] PAST MEDICAL HISTORY: 1. [See HPI PAST SURGICAL HISTORY: 1. [Right ankle orif]. 2. [Left clavicle surgery]. 3. [Hysterectomy, tubal ligation]. SOCIAL HISTORY: Tobacco use:[Denies] ETOH: [Denies] Illicit drug use: [Denies] FAMILY HISTORY: CAD, DM, HTN, meniere's disease ALLERGIES: Please see below. REVIEW OF SYSTEMS: CONSTITUTIONAL: [Denies fever, chills]. HEENT: [Denies uri sx]. CARDIOVASCULAR: [See HPI]. RESPIRATORY: [See HPI]. GASTROINTESTINAL: [Denies n/v/d/c]. GENITOURINARY: [Denies dysuria]. SKIN: [Denies rash]. MUSCULOSKELETAL: [Admits to knee, ankle pain b/l]. NEUROLOGICAL: [See HPI. Denies paresthesias.]. ENDOCRINE: [Denies hx of DM]. HEMATOLOGIC/LYMPHATIC: [Denies hx of easy bruising]. HOME MEDICATIONS: Please see below. PHYSICAL EXAMINATION: VITAL SIGNS: Please see below. GENERAL APPEARANCE: [This is an agitated 60 y/o female who appears restless in bed. She does not appear to be in any respiratory distress.]. HEENT: [No mass or lesion. EOMI. No scleral icterus. Nares patent. Oral mucosa moist.]. CARDIOVASCULAR: [Regular rate, rhythm. No murmurs, rubs, gallops]. LUNGS: [Good air flow b/l. No wheezing, rales, rhonchi.]. ABDOMEN: [Soft, nontender.]. MUSCULOSKELETAL: [Patient moves all fours freely. No joint deformity]. EXTREMITIES: [No peripheral edema. No overlying skin changes. Pulses intact.]. NEUROLOGICAL: [Speech clear. Moves all fours freely. A+Ox3. No focal deficits noted.]. PSYCHIATRIC: [Mood appropriate. Flat affect.]. LABORATORY DATA: See below. IMAGING: [CT C-spine: FINDINGS: Bones/joints: Reversal of the cervical lordosis may be positional or due to muscle spasm. No acute fracture seen. Disc height loss and spondylosis is [id number] from C4-C5 through C7-T1. Partially calcified right lateral canal disc extrusion at C5-C6 contributes to right lateral recess stenosis. Central spinal canal stenosis may be moderate at the C6-C7 level. Multilevel neural foraminal stenoses due to uncovertebral and facet arthropathy, in particular on the right at C3-C4 and C4-C5. Discs/Spinal canal/Neural foramina: See "Bones/joints" finding. Oropharynx: Asymmetric enlargement of the right lingual tonsil which effaces the right vallecular space, image 36 series 302. Lungs: Lung apices are normal. Soft tissues: Unremarkable. A right cervical rib demonstrates a pseudoarthrosis with the right 1st rib. IMPRESSION: 1. No cervical spine fracture seen. 2. Nonspecific asymmetric enlargement of the right lingual tonsil. Recommend direct visualization to exclude a mass. Head CT: FINDINGS: Brain: Focal, chronic appearing lacunar infarct in the right caudate nucleus, new or evolved since the prior CT head study. No hemorrhage or edema seen. Cerebral ventricles: No ventriculomegaly. Paranasal sinuses: Visualized sinuses are unremarkable. No fluid levels. Mastoid air cells: The left mastoids are chronically underpneumatized. Bones/joints: Unremarkable. No acute fracture. Soft tissues: Unremarkable. IMPRESSION: No acute intracranial abnormality seen. Ankle x-ray: FINDINGS: There has been previous ORIF on the right with internal fixation plate and multiple screws. The mortise is intact. There is no acute fracture. Chronic degenerative changes seen involving both medial and lateral malleoli. There are plantar and retrocalcaneal heel spurs. Plantar and retrocalcaneal heel spurs are seen on the left. There is no acute fracture, dislocation, or subluxation. The mortise is intact. IMPRESSION: Chronic changes bilateral ]Knee x-ray: FINDINGS: Tricompartmental marginal osteophytosis is seen bilaterally increased from the prior exam. There is bilateral medial compartmental narrowing right knee greater than left knee. There is bilateral asymmetric patellofemoral joint space narrowing left knee greater than right. No acute fracture, dislocation, or subluxation is seen. IMPRESSION: Chronic changes bilateral. CXR: FINDINGS: The superior mediastinal structures are midline. The cardiac silhouette is unremarkable in size, shape, and position. The diaphragmatic surfaces of the lungs are regular, and the costophrenic angles are clear. The pulmonary wyatt are clear. The imaged osseous structures are intact. IMPRESSION: There is no acute cardiopulmonary disease. MICROBIOLOGY: Please see below. ASSESSMENT: [This is a 60 y/o female with a pmh of TIA, migraine headaches, asthma and htn who presents to the emergency room today with her after experiencing two syncopal events, one of them resulting in her striking her head and suffering a scalp laceration. On exam, patient appears to be neurologically intact. D/t past hx of tia and head injury, she will require further w/u and observation.]. . PLAN: 1. [Syncope - Ddx: TIA vs. CVA vs. Orthostatic htn vs. Vasovagal - Imaging has been grossly negative in the ED thus far - MRI brain, carotid us ordered - issue does not appear to be cardiac in origin at this time - will start asa - will perform orthostatic bp's once patient's pain is controlled - Scalp laceration has been stapled by ed providers - admit to med surg with tele for w/u of syncope 2. Scalp lac - Pt should have artie removed within 7-14 days 3. Acute knee/ankle pain - 2/2 falls - Imaging shows arthritis, no acute fx - Will give tramadol for mod/severe pain, tylenol for mild pain 4. Asthma - continue montelukast, zyrtec 5. RLS - continue ropinirole 6. Depression/anxiety - continue trazodone, quetiapine, duloxetine DVT prophylaxis - Teds and scds]. Vital Signs Vital Signs Date Time Temp Pulse Resp B/P (MAP) Pulse Ox O2 Delivery O2 Flow Rate FiO2 04/12/21 17:27 73 156/79 (104) 75 154/84 (107) 04/12/21 15:18 98.7 17 98 Room Air Laboratory Data Labs 24H Laboratory Tests 2 04/12/21 15:59: Immature Granulocyte % (Auto) 0.2, Neutrophils (%) (Auto) 79.2H, Lymphocytes (%) (Auto) 13.6L, Monocytes (%) (Auto) 5.9, Eosinophils (%) (Auto) 0.6, Basophils (%) (Auto) 0.5, Neutrophils # (Auto) 6.8, Lymphocytes # (Auto) 1.2L, Monocytes # (Auto) 0.5, Eosinophils # (Auto) 0.1, Basophils # (Auto) 0.0, Nucleated Red Blood Cells % (auto) 0.0, Anion Gap 6L, Glomerular Filtration Rate 42.6L, Calcium Level 8.8, Total Creatine Kinase 73, Creatine Kinase MB < 1.0, Creatine Kinase MB Relative Index 1.37, Troponin I < 0.02 CBC/BMP Laboratory Tests 04/12/21 15:59 Home Medications Scheduled Cetirizine HCl (Cetirizine HCl) 10 Mg Tablet, 10 MG PO QHS Duloxetine Hcl (Duloxetine HCl) 60 Mg Capsule.dr, 60 MG PO QHS Montelukast Sodium (Montelukast Sodium) 10 Mg Tablet, 10 MG PO QHS Quetiapine Fumarate (Seroquel) 100 Mg Tab, 100 MG PO QHS Ropinirole HCl (Ropinirole HCl) 4 Mg Tablet, 4 MG PO QHS Topiramate (Topiramate) 100 Mg Tab, 100 MG PO BID Trazodone HCl (Trazodone HCl) 100 Mg Tab, 200 MG PO QHS Allergies Coded Allergies: Penicillins (Verified Allergy, Intermediate, HIVES, 02/10/20) Sulfa (Sulfonamide Antibiotics) (Verified Allergy, Intermediate, HIVES, 02/10/20) clarithromycin (Verified Adverse Reaction, Mild, VOMIT, 02/10/20) morphine (Verified Adverse Reaction, Mild, VOMIT, 02/10/20) ALL OPIODS A-FIB/CHADSVASC A-FIB History Current/History of A-Fib/PAF?: No Current PO Anticoag Therapy: No Attending Note Attending Note Time of service 720pm Ms. Singer is a 60 yr old w a hx of depression/ anxiety, HTN, TIA, migraines, CKD3, Bipolar disorder& episodes of syncope who presented for evaluation after having 2 syncopal episodes. Her physical exam was only remarkable for a placement of stitches at the back of her head. Her neurological exam was remarkable for difficulties lifting her legs or standing because of pain after falling. Labs, Imaging studies and EKG reviewed (no QTC prolongation) # Syncope cause TBD # Scalp laceration Plan: telemetry / othostats / f/u MRI and Echo / if work up is neg she may need an outpatient holter monitor Rest per JASMIN Davis&P NAEL HATCH Apr 12, 2021 19:01 ESTELLA LORD MD Apr 12, 2021 21:44
[2021-04-12] MEDS: traMADol 50 MG TAB PO PRN (19:15)
[2021-04-12] MEDS ORDERED: MONT10TA10 PO (19:21)
[2021-04-12] MEDS ORDERED: DULO1CAP6 PO (19:21)
[2021-04-12 19:42] LABS: PROLACTIN 1.6 NG/ML
[2021-04-12 20:29] LABS: RSV AMPLIFICATION NEGATIVE (NEGATIVE)
[2021-04-12 22:09] VITALS: BP 129/77
[2021-04-12] MEDS: traZODone 100 MG TAB PO SCH (22:41)
[2021-04-12] MEDS: rOPINIRole 2MG TAB PO SCH (22:41)
[2021-04-12] MEDS: DULoxetine 30 MG CAP (CYMBALTA) PO SCH (22:41)
[2021-04-12] MEDS: MONTELUKAST 10 MG TAB PO SCH (22:41)
[2021-04-12] MEDS: TOPIRAMATE (TopAMAX) 100 MG TAB PO SCH (22:42)
[2021-04-12] MEDS: DOCUSATE SODIUM 100MG CAPSULE PO SCH (22:42)
[2021-04-12] MEDS: CETIRIZINE (ZyrTEC) 10 MG TAB PO SCH (22:42)
[2021-04-12] MEDS: QUEtiapine FUMARATE 100 MG TAB PO SCH (22:42)
--- NOTE | 2021-04-12 22:55 | REPVR ---
PROCEDURE INFORMATION: Exam: US Duplex Bilateral Extracranial Arteries Exam date and time: 04/12/2021 9:43 PM Age: 60 years old Clinical indication: Syncope and collapse TECHNIQUE: Imaging protocol: Real-time Duplex ultrasound scan of the bilateral carotid and vertebral arteries combining hawley scale, color Doppler and spectral waveform analysis. Bilateral exam. COMPARISON: 1. US Duplex,carotid (complete) 2020-02-10 16:48 2. US Duplex,carotid (complete) 2016-09-04 19:52 FINDINGS: Right common carotid artery: Unremarkable. No occlusion or stenosis. Waveforms are normal. Right internal carotid artery: Unremarkable. No occlusion or stenosis. Waveforms are normal. Right ICA/CCA ratio: Within normal limits. Right external carotid artery: No stenosis in the origin. Right vertebral artery: Unremarkable. Antegrade flow. Left common carotid artery: Unremarkable. No occlusion or stenosis. Waveforms are normal. Left internal carotid artery: Unremarkable. No occlusion or stenosis. Waveforms are normal. Left ICA/CCA ratio: Within normal limits. Left external carotid artery: No stenosis in the origin. Left vertebral artery: Unremarkable. Antegrade flow. IMPRESSION: No carotid arterial stenosis. REFERENCES: SRU CRITERIA. The degree of internal carotid artery stenosis is based on criteria defined by the Society of Radiologists in Ultrasound (SRU). Normal is no stenosis. Mild is less than 50% stenosis. Moderate is 50-69% stenosis. Severe is greater than 69% stenosis to near occlusion. Near occlusion is a markedly narrowed lumen. Total occlusion is no detectable patent lumen. Electronically signed by: Alvin Rendon On 04/12/2021 22:54:41 PM
--- NOTE | 2021-04-12 23:04 | REPVR ---
PROCEDURE INFORMATION: Exam: MR Head Without Contrast Exam date and time: 04/12/2021 9:22 PM Age: 60 years old Clinical indication: Injury or trauma; Concussion/head injury; With loss of consciousness; Not specified; Injury date: 04/12/21; Patient HX: Syncope, dizziness, fall head laceration back RT of skull with artie; Additional info: Syncope, HX of TIA TECHNIQUE: Imaging protocol: MR of the head without contrast. COMPARISON: 1. MRI-Brain without Contrast 2020-02-10 14:24 2. MRA BRAIN W/O CONTRAST 2020-02-10 14:[address] Head without contrast 04/12/2021 3:32:01 PM FINDINGS: Brain: Unchanged nonspecific mild chronic FLAIR signal hyperintense cerebral white matter disease. No brain parenchymal diffusion restriction to suggest acute ischemia or infarction. T2 shine through corresponding to a small left superior frontal gyrus subcortical white matter focus is unchanged. Small chronic right caudate lacunar infarct. No midline shift, mass, fluid collection, or evidence of acute hemorrhage. Normal cerebral brain volume. Cerebral ventricles: Normal. No ventriculomegaly. Bones/joints: Unremarkable. Paranasal sinuses: Normal as visualized. No acute sinusitis. Mastoid air cells: Small left mastoid effusion. Orbital cavity: Unremarkable. Soft tissues: Parietooccipital susceptibility artifact related to scalp artie. IMPRESSION: No acute intracranial abnormality. Electronically signed by: Alvin Rendon On 04/12/2021 23:04:42 PM
[2021-04-13 06:00] VITALS: BP 112/63
[2021-04-13] MEDS: DOCUSATE SODIUM 100MG CAPSULE PO SCH ×2 (08:55→20:38)
[2021-04-13] MEDS: ASPIRIN 81MG ENTERIC TABLET PO SCH (08:55)
[2021-04-13] MEDS: TOPIRAMATE (TopAMAX) 100 MG TAB PO SCH ×2 (08:55→20:38)
[2021-04-13] MEDS: traMADol 50 MG TAB PO PRN ×2 (09:00→20:38)
--- NOTE | 2021-04-13 13:52 | IPNPDOC ---
Subjective Date Seen The patient was seen on 04/13/21. Subjective Chief Complaint/HPI Syncope Events since last encounter SM was admitted overnight, no additional syncopal events. Feeling well, no acute concerns aside from mild headache. General: Reports: Normal Appetite; Denies: Chills Constitutional: Reports: Weakness, Fatigue; Denies: Fever ENT: Reports: Head Aches Skin: Denies: Rash Pulmonary: Denies: Dyspnea, Cough, Pleuritic Chest Pain Cardiovascular: Denies: Chest Pain, Palpitations, Orthopnea, Edema, Lt Headedness Gastrointestinal: Denies: Nausea, Vomiting, Abdominal Pain, Diarrhea, Constipation, Melena, Hematochezia Genitourinary: Denies: Dysuria, Frequency Hematologic: Denies: Petecchia Musculoskeletal: Reports: Leg Pain (bilateral leg/knee pain from fall.); Denies: Neck Pain, Back Pain Neurological: Reports: Weakness (feels generally weak compared to baseline); Denies: Numbness, Incoordination, Confusion Psych: Reports: Mood Normal; Denies: Anxiety Objective Physical Examination General Exam: Positive: Alert, Cooperative, No Acute Distress Eye Exam: Positive: PERRLA, EOMI ENT Exam: Positive: Atraumatic Neck Exam: Positive: Supple, +2 carotid pulse wo bruit Chest Exam: Positive: Clear to auscultation, Normal air movement Heart Exam: Positive: Rate Normal, Normal S1, Normal S2; Negative: Murmurs, Rubs Telemetry: Positive: No significant arrhythmia, Sinus Abdomen Exam: Positive: Normal bowel sounds, Soft; Negative: Tenderness, Hepatospenomegaly Extremity Exam: Negative: Edema Skin Exam: Positive: Nl turgor and temperature; Negative: Rash Neuro Exam: Positive: Normal Speech Psych Exam: Positive: Mental status NL, Mood NL, Memory Intact, Oriented x 3 RAD Interpretation STUDY: CXR Rad Actions: Report Reviewed, Films Reviewed, Discussed with the pt RAD Interpretation: Normal Assessment /Plan Plan/VTE VTE Prophylaxis Ordered?: Yes (begin lovenox today, patient is moderate dolly score and no acute bleed on mri brain) Plan Diet: Continue Current Activity: Continue Current Therapy: PT, OT, Home Safety Eval Pt and Family Services: Home Care Diagnostics: Check Labs, Repeat Labs in AM, TTE (pending) Anticipated Discharge: Home With Services (within 47 hours, with holter monitoring and pcm f/u) Disposition Remain med/surg awaiting TTE results, anticipate d/c to home within 48 hours. VS, I&O, 24H, Fishbone Vital Signs/I&O Vital Signs Date Time Temp Pulse Resp B/P (MAP) Pulse Ox O2 Delivery O2 Flow Rate FiO2 04/13/21 09:30 18 04/13/21 06:00 97.6 65 112/63 (79) 96 Room Air I&O- Last 24 Hours up to 6 AM 04/13/21 06:00 Intake Total 300 ml Output Total 400 ml Balance -100 ml Laboratory Data 24H LABS Laboratory Tests 2 04/12/21 15:59: Immature Granulocyte % (Auto) 0.2, Neutrophils (%) (Auto) 79.2H, Lymphocytes (%) (Auto) 13.6L, Monocytes (%) (Auto) 5.9, Eosinophils (%) (Auto) 0.6, Basophils (%) (Auto) 0.5, Neutrophils # (Auto) 6.8, Lymphocytes # (Auto) 1.2L, Monocytes # (Auto) 0.5, Eosinophils # (Auto) 0.1, Basophils # (Auto) 0.0, Nucleated Red Blood Cells % (auto) 0.0, Anion Gap 6L, Glomerular Filtration Rate 42.6L, Calcium Level 8.8, Total Creatine Kinase 73, Creatine Kinase MB < 1.0, Creatine Kinase MB Relative Index 1.37, Troponin I < 0.02, Prolactin 1.6 04/12/21 19:06: Coronavirus (COVID-19)(PCR) NEGATIVE, Influenza Type A (RT-PCR) NEGATIVE, Influenza Type B (RT-PCR) NEGATIVE, Respiratory Syncytial Virus (PCR) NEGATIVE CBC/BMP Laboratory Tests 04/12/21 15:59 VAIBHAV MACE MD [facility] Apr 13, 2021 13:45
[2021-04-13 14:00] VITALS: BP 119/73
[2021-04-13] MEDS ORDERED: ENOXAPARIN 40MG/0.4ML SYRINGE (J1650 PER 10MG) SC ONE (14:00)
[2021-04-13] MEDS: DULoxetine 30 MG CAP (CYMBALTA) PO SCH (20:37)
[2021-04-13] MEDS: rOPINIRole 2MG TAB PO SCH (20:37)
[2021-04-13] MEDS: QUEtiapine FUMARATE 100 MG TAB PO SCH (20:38)
[2021-04-13] MEDS: MONTELUKAST 10 MG TAB PO SCH (20:38)
[2021-04-13] MEDS: CETIRIZINE (ZyrTEC) 10 MG TAB PO SCH (20:38)
[2021-04-13] MEDS: traZODone 100 MG TAB PO SCH (20:38)
[2021-04-13 22:00] VITALS: BP 118/74
[2021-04-14 06:00] VITALS: BP 139/79
[2021-04-14 06:03] LABS: HEMATOCRIT 40.5 % (36.0-47.0); HEMOGLOBIN 13.4 g/dl (12.0-15.5); MEAN CORPUSCULAR HEMOGLOBIN 31.3 pg (27.0-33.0); MEAN CORPUSCULAR HGB CONC 33.1 g/dl (32.0-36.5); MEAN CORPUSCULAR VOLUME 94.6 fl (80.0-96.0); PLATELET COUNT, AUTOMATED 187 10^3/uL (150-450); RED BLOOD COUNT 4.28 10^6/uL (4.00-5.40); WHITE BLOOD COUNT 4.9 10^3/uL (4.0-10.0)
[2021-04-14 06:30] LABS: CREATININE FOR GFR 1.2 MG/DL (0.55-1.30); GLOMERULAR FILTRATION RATE 48.8 (>45); MAGNESIUM LEVEL 2.3 MG/DL (1.8-2.4); POTASSIUM SERUM 4.1 MEQ/L (3.5-5.1)
[2021-04-14] MEDS: ASPIRIN 81MG ENTERIC TABLET PO SCH (08:38)
[2021-04-14] MEDS: TOPIRAMATE (TopAMAX) 100 MG TAB PO SCH (08:39)
[2021-04-14] MEDS: DOCUSATE SODIUM 100MG CAPSULE PO SCH (08:39)
[2021-04-14] MEDS: traMADol 50 MG TAB PO PRN (08:42)
[2021-04-14] MEDS ORDERED: ENOXAPARIN 40MG/0.4ML SYRINGE (J1650 PER 10MG) SC SCH (09:00)
[2021-04-14] MEDS ORDERED: ASPI-551 PO (11:16)
--- NOTE | 2021-04-14 11:44 | ECHO ---
ECHOCARDIOGRAM DATE OF PROCEDURE: 04/13/2021 Age: Gender: Height: 170 cm Weight: 100 kg REFERRING PHYSICIAN: Dr. Louise Thomas. INDICATION: Syncope. MEASUREMENTS: IVS 1.2 cm LV 3.9 cm LVPW 0.9 cm LA 3.0 cm Aorta 2.9 cm IVC 1.4 cm Mitral E wave velocity 94 A wave 92 E prime septal 8.1 E prime lateral 9.5 FINDINGS: This study is of rather limited technical quality corresponding to patient's body habitus. There is underlying sinus rhythm. Left ventricle is normal size. Mild left ventricular hypertrophy is noted. Overall probably normal LV systolic function based on limited views. Right ventricle also appears grossly normal size and systolic function. Both atria appear normal. Aortic, mitral, tricuspid, and pulmonic valves were all seen reasonably well and grossly appear normal. Trivial pericardial effusion is noted. Inferior vena cava is normal size. Aortic root and aortic arch appear normal. Abdominal aorta was not well seen. Doppler interrogation reveals competent aortic and mitral valves. Also tricuspid valve does not indicate any significant stenosis or insufficiency. Pulmonic valve is functionally competent as well. Mitral inflow pattern and tissue Doppler imaging of mitral annulus revealed probably normal diastolic function even though tissue Doppler velocities of mitral annulus are mildly reduced. CONCLUSIONS: 1. Study is of fair technical quality. Underlying sinus rhythm. 2. Normal LV size with mild LVH and likely normal LV systolic and diastolic function. 3. No significant valvular disease. 4. Normal central venous pressure. 5. Unable to estimate pulmonary artery pressure but no signs to suggest pulmonary hypertension. 6. No obvious findings to explain etiology of syncope. MTDD
--- NOTE | 2021-04-15 07:19 | DS.PDOC ---
Discharge Summary General Date of Admission Apr 12, 2021 at 15:18 Date of Discharge 04/14/2021 Attending Physician: VAIBHAV MACE MD [facility] Discharge Summary PROCEDURES PERFORMED DURING STAY: scalp laceration repair with 3 artie. ADMITTING DIAGNOSES: 1. Syncope 2. Scalp laceration DISCHARGE DIAGNOSES: 1. Syncope 2. Scalp laceration 3. Renal impairment (serum creatinine: 1.2, eGFR 48 , no prior for comparison) 4. Obesity, BMI 33.9kg/m2 5. Small chronic right caudate lacunar infarct on MRI brain COMPLICATIONS/CHIEF COMPLAINT: Syncope And Collapse. HISTORY OF PRESENT ILLNESS: [This is a 60 y/o female with a past medical history of TIA, migraine headaches, asthma and htn who presents to the emergency room today with her after experiencing two syncopal events, one of them resulting in her striking her head and suffering a scalp laceration. Patient states that the first episode occurred when she was retrieving her laundry from her dresser drawers she states she simply passed out and fell onto her knees and ankles. Patient states that she was not dizzy or experiencing any kind of chest pain or palpitations prior to the fall, and was not groggy after the fall. Patient states that later in the day, she was standing up out of her chair at the dining room table, when she again passed out. Patient states that this time she struck the back of her head off of the dining room table and suffered a laceration to her scalp. Again, patient states that she had no pre-syncope dizziness, chest pain, palpitations and no post fall grogginess. Patient states that at the moment, she is experiencing severe pain in her b/l knees and ankles and is asking for pain medication. Patient denies headaches, vision changes, weakness, slurred speech. Patient states that she has a history of passing out, and in the past she was worked up and diagnosed with transient ischemic attacks at that time.] HOSPITAL COURSE: Mrs. Singer was admitted for further workup of her unwitnessed syncopal event and remained on telemetry with no acute events. She did not experience any pre syncopal or syncopal events while hospitalized and aside from a minor headache in the area of her scalp laceration remained overall asymptomatic. Orthostatic vital signs were not positive and she had unremarkable carotid artery ultrasound and brain imaging only revealed a chronic right lacunar infarct which was not the source of her pre-hospital syncope. Her laboratory studies were only remarkable for a reduced eGFR which could not be corroborated with prior lab values. She was evaluated by physical therapy and was determined to require walker and physical therapy services upon discharge. These were arranged for her and she was discharged to home to await echocardiogram results and follow up with Cardiology and her PCM to receive 2 week cardiac monitoring. She will also require Neurology evaluation as an outpatient following Cardiology results. DISCHARGE MEDICATIONS: Please see below. ALLERGIES: Please see below. PHYSICAL EXAMINATION ON DISCHARGE: VITAL SIGNS: Please see below. General Exam: Positive: Alert, Cooperative, No Acute Distress Eye Exam: Positive: PERRLA, EOMI ENT Exam: Positive: Atraumatic Neck Exam: Positive: Supple, +2 carotid pulse wo bruit Chest Exam: Positive: Clear to auscultation, Normal air movement Heart Exam: Positive: Rate Normal, Normal S1, Normal S2; Negative: Murmurs, Rubs Telemetry: Positive: No significant arrhythmia, Sinus Abdomen Exam: Positive: Normal bowel sounds, Soft; Negative: Tenderness, Hepatospenomegaly Extremity Exam: Negative: Edema Skin Exam: Positive: Nl turgor and temperature; appropriately managed 2.5 in right posterior scalp laceration Negative: Rash Neuro Exam: Positive: Normal Speech Psych Exam: Positive: Mental status NL, Mood NL, Memory Intact, Oriented x 3 LABORATORY DATA: Please see below. IMAGING: CT head w/o: IMPRESSION: No acute intracranial abnormality seen. MRI Brain: FINDINGS: Brain: Unchanged nonspecific mild chronic FLAIR signal hyperintense cerebral white matter disease. No brain parenchymal diffusion restriction to suggest acute ischemia or infarction. T2 shine through corresponding to a small left superior frontal gyrus subcortical white matter focus is unchanged. Small chronic right caudate lacunar infarct. No midline shift, mass, fluid collection, or evidence of acute hemorrhage. Normal cerebral brain volume. Cerebral ventricles: Normal. No ventriculomegaly. Bones/joints: Unremarkable. Paranasal sinuses: Normal as visualized. No acute sinusitis. Mastoid air cells: Small left mastoid effusion. Orbital cavity: Unremarkable. Soft tissues: Parietooccipital susceptibility artifact related to scalp artie. IMPRESSION: No acute intracranial abnormality. Carotid artery US: FINDINGS: Right common carotid artery: Unremarkable. No occlusion or stenosis. Waveforms are normal. Right internal carotid artery: Unremarkable. No occlusion or stenosis. Waveforms are normal. Right ICA/CCA ratio: Within normal limits. Right external carotid artery: No stenosis in the origin. Right vertebral artery: Unremarkable. Antegrade flow. Left common carotid artery: Unremarkable. No occlusion or stenosis. Waveforms are normal. Left internal carotid artery: Unremarkable. No occlusion or stenosis. Waveforms are normal. Left ICA/CCA ratio: Within normal limits. Left external carotid artery: No stenosis in the origin. Left vertebral artery: Unremarkable. Antegrade flow. IMPRESSION: No carotid arterial stenosis. CT C Spine w/o IMPRESSION: 1. No cervical spine fracture seen. 2. Nonspecific asymmetric enlargement of the right lingual tonsil. Recommend direct visualization to exclude a mass. bilateral ankle XR: IMPRESSION: Chronic changes bilateral bilateral knee XR IMPRESSION: Chronic changes bilateral. CXR: IMPRESSION: There is no acute cardiopulmonary disease. PROGNOSIS: Good ACTIVITY: Ambulate with walker, participate in outpatient physical therapy DIET: Heart healthy diet DISCHARGE PLAN: Follow up with your primary care provider within 7 days Follow up with cardiology to receive a 2 week lunchroom monitor Follow up with Neurology after lunchroom monitor has resulted Ambulate with walker and take caution when moving from sitting to standing positions Ensure that there are no throw rugs on the ground in your home and that extraneous objects are removed from walking paths DISPOSITION: 01 Home, Self-Care. ITEMS TO FOLLOWUP ON ON OUTPATIENT: 1. Echocardiogram results 2. telemetry monitor placement and study results 3. Physical Therapy Progress DISCHARGE CONDITION: [Stable]. TIME SPENT ON DISCHARGE: Greater than 30 minutes. Vital Signs/I&Os Vital Signs Date Time Temp Pulse Resp B/P (MAP) Pulse Ox O2 Delivery O2 Flow Rate FiO2 04/14/21 09:12 16 94 Room Air 04/14/21 06:00 97.5 67 139/79 (99) I&O- Last 24 Hours up to 6 AM 04/15/21 06:00 Intake Total 240 ml Output Total 200 ml Balance 40 ml Discharge Medications Scheduled Aspirin (Aspirin EC) 81 Mg Tablet.dr, 81 MG PO DAILY Cetirizine HCl (Cetirizine HCl) 10 Mg Tablet, 10 MG PO QHS, (Reported) Duloxetine Hcl (Duloxetine HCl) 60 Mg Capsule.dr, 60 MG PO QHS, (Reported) Montelukast Sodium (Montelukast Sodium) 10 Mg Tablet, 10 MG PO QHS, (Reported) Quetiapine Fumarate (Seroquel) 100 Mg Tab, 100 MG PO QHS, (Reported) Ropinirole HCl (Ropinirole HCl) 4 Mg Tablet, 4 MG PO QHS, (Reported) Topiramate (Topiramate) 100 Mg Tab, 100 MG PO BID, (Reported) Trazodone HCl (Trazodone HCl) 100 Mg Tab, 200 MG PO QHS, (Reported) Allergies Coded Allergies: Penicillins (Verified Allergy, Intermediate, HIVES, 02/10/20) Sulfa (Sulfonamide Antibiotics) (Verified Allergy, Intermediate, HIVES, 02/10/20) clarithromycin (Verified Adverse Reaction, Mild, VOMIT, 02/10/20) morphine (Verified Adverse Reaction, Mild, VOMIT, 02/10/20) ALL OPIODS VAIBHAV MACE MD [facility] Apr 15, 2021 07:13
== END 2021-04-14 14:30 | disposition home or self-care (01) ==
LOC: M ED 15:17 → M ED INP 15:18 → ENRESERV 21:17 → M MSPAV 22:10
PROVIDERS: ADMIT Internal Medicine; ATTEND General Practice
DX: R55 Syncope and collapse (principal); S01.01XA Laceration without foreign body of scalp, initial encounter; W01.190A Fall on same level from slipping, tripping and stumbling with subsequent striking against furniture, initial encounter; Y92.001 Dining room of unspecified non-institutional (private) residence as the place of occurrence of the external cause; Y93.9 Activity, unspecified; Y99.9 Unspecified external cause status; N28.9 Disorder of kidney and ureter, unspecified; G43.909 Migraine, unspecified, not intractable, without status migrainosus; I63.81 Other cerebral infarction due to occlusion or stenosis of small artery; E66.9 Obesity, unspecified; Z86.73 Personal history of transient ischemic attack (TIA), and cerebral infarction without residual deficits; J45.909 Unspecified asthma, uncomplicated; Z88.0 Allergy status to penicillin; Z88.2 Allergy status to sulfonamides; Z88.5 Allergy status to narcotic agent; M79.7 Fibromyalgia; G25.81 Restless legs syndrome; G47.00 Insomnia, unspecified; F31.9 Bipolar disorder, unspecified; Z79.82 Long term (current) use of aspirin; Z79.899 Other long term (current) drug therapy
CPT/HCPCS: 12001; 36415; 70450; 70551; 71046; 72125; 73564; 73610; 80048; 82550; 82553; 83735; 84146; 84484; 85025; 85027; 87631; 90471; 90715; 93005; 93041; 93306; 93880; 94760; 96372; 97116; 97161; 97530; 99285; J1650

== ENCOUNTER 2021-04-27 09:13 | Outpatient (RCR) | payer BC ==
[~2021-04-27 09:13] MED LIST changes: +ASPI-551 PO; +DULO1CAP6 PO; +MONT10TA10 PO
== END 2021-04-28 ==
LOC: M PT 09:13
PROVIDERS: ATTEND Family Medicine
DX: R55 Syncope and collapse (principal)

== ENCOUNTER 2021-05-26 10:31 | Outpatient (RCR) | payer BC ==
[~2021-05-26 10:31] MED LIST changes: -MONT10TA10 PO; +MONT10TA97 PO
== END 2021-05-29 ==
LOC: M PT 10:31
PROVIDERS: ATTEND Family Medicine
DX: R55 Syncope and collapse (principal); W19.XXXD Unspecified fall, subsequent encounter

== ENCOUNTER 2021-06-09 10:33 | Outpatient (RCR) | payer BC ==
[~2021-06-09 10:33] MED LIST changes: +MONT10TA10 PO; -MONT10TA97 PO
== END 2021-06-29 ==
LOC: M PT 10:33
PROVIDERS: ATTEND Family Medicine
DX: R55 Syncope and collapse (principal)

== ENCOUNTER 2021-07-23 15:50 | Day surgery (SDC) | payer BC ==
[~2021-07-23] VITALS: Ht 170.2 cm; Wt 96.6 kg
[2021-07-23] MEDS ORDERED: ceFAZolin SOD 1 GM in D5W MINI-BAG PLUS 50 ML IV ONE ×2 (16:10→16:25)
[2021-07-23] MEDS ORDERED: LR 1,000 ML IV SCH (16:10)
[2021-07-23] MEDS ORDERED: fentaNYL 100 MCG/2 ML INJECTION (J3010) As Ordered ONE (18:10)
[2021-07-23] MEDS ORDERED: propofoL 200 MG/20 ML VIAL As Ordered ONE (18:10)
[2021-07-23] MEDS ORDERED: LIDOCAINE 2% 100MG/5ML SDV (FOR ANES.) As Ordered ONE (18:10)
[2021-07-23] MEDS ORDERED: MIDAZOLAM INJ 2MG/2ML VIAL (J2250 PER 1MG) As Ordered ONE (18:10)
[2021-07-23] MEDS ORDERED: LIDOCAINE 1% SDV 30ML VIAL As Ordered ONE (18:29)
[2021-07-23 19:35] VITALS: BP 131/68
--- NOTE | 2021-07-23 20:35 | RO ---
OPERATIVE NOTE DATE OF OPERATION: 07/23/2021 PREOPERATIVE DIAGNOSIS: 1. Recurrent syncope with injury. POSTOPERATIVE DIAGNOSIS: 1. Recurrent syncope with injury. PROCEDURE: Implantation of implantable loop recorder. IMPLANTING SUPERVISOR COFFEE: Alvaro Sheridan M.D. ANESTHESIOLOGIST: Dr. Morel ANESTHESIA: Monitored local anesthesia (due to patient anxiety). DESCRIPTION OF PROCEDURE: In the fasting state having received Ancef 2 gm premedication and signing informed consent, the patient was taken to the operating theater. Numerous electrodes were applied to facilitate continuous electrocardiographic monitoring. The left parasternal region was prepped and draped in the usual fashion and the skin was infiltrated with 1% Xylocaine. A 1/2 cm incision was made using special device tool. Her implantable loop recorder was inserted in a vertical direction parallel to the left parasternal border starting at the third intercostal space as defined as best site using preoperative mapping. Device name [employer] RX, model number DM [id number], serial number [id number]. Excellent intracardiac electrograms were observed showing both P wave and QRS complexes (R wave 0.7 mV). Device triggers were for pauses as well as atrial fibrillation, sensing EGM dynamic range, plus minus 0.8 millivolts, maximum sensitivity 0.125 millivolts, tachycardia trigger rate 170 BPM, sudden-onset. The small incision was closed using three artie and a dry dressing was applied. The patient was returned to the recovery room in good condition. ESTIMATED BLOOD LOSS: 1 ml. COMPLICATIONS: No complications. The patient will be allowed to go home once she is alert and ambulatory. Her dietary measures should resume along with her customary medications. My office will be contacting her for a single clinic visit for wound check and staple removal in 7-10 days. In the interim, we have asked her to avoid getting her incision wet and requested that she contact us should she notice any abnormal erythema, swelling or discharge. Dr. Ellison, her primary bridges and buildings supervisor, [facility], will be following her device. LINO
== END 2021-07-23 19:46 | disposition home or self-care (01) ==
LOC: M SDC 15:50
PROVIDERS: ATTEND Internal Medicine Cardiovascular Disease
DX: R55 Syncope and collapse (principal); I10 Essential (primary) hypertension; J45.909 Unspecified asthma, uncomplicated; F41.9 Anxiety disorder, unspecified; F32.9 Major depressive disorder, single episode, unspecified; Z86.73 Personal history of transient ischemic attack (TIA), and cerebral infarction without residual deficits; Z79.899 Other long term (current) drug therapy; Z79.82 Long term (current) use of aspirin
CPT/HCPCS: 33285; C1764; J0690; J2250; J3010; U0002

== ENCOUNTER → 2022-07-26 | Outpatient (CLI) | payer BC ==
[~2022-07-26] MED LIST changes: -MONT10TA10 PO; +MONT10TA97 PO
== END ==
LOC: M WHC 10:10
PROVIDERS: ATTEND Family Medicine
DX: S82.891D Other fracture of right lower leg, subsequent encounter for closed fracture with routine healing (principal)

== ENCOUNTER 2023-09-28 07:14 | Day surgery (SDC) | payer BC ==
[~2023-09-28] VITALS: Ht 170.2 cm; Wt 97.1 kg
[~2023-09-28 07:14] MED LIST changes: +ATOR1TAB19 PO; +BENA1TAB24 PO; +CARB25TA9 PO; +DULO1CAP4 PO; +LIDOCAINE 2% 100MG/5ML SDV (FOR ANES.) As Ordered ONE; +METO1TAB87 PO; +MYRB25TA PO; +NS 1,000 ML IV ONE; +QUET100T2 PO; -ROPI1TAB3 PO; +ROPI1TAB73 PO; -ROPI4TAB3 PO; +ROPI4TAB36 PO; +TRUL10IN SC; +propofoL 200 MG/20 ML VIAL As Ordered ONE
[2023-09-28] MEDS ORDERED: GLYCOPYRROLATE INJ 0.2 MG/ML 2 ML VIAL As Ordered ONE (08:29)
[2023-09-28 09:38] VITALS: BP 138/72; TEMP 97.9; O2SAT 95
== END 2023-09-28 09:35 | disposition home or self-care (01) ==
LOC: M OPP 07:14
PROVIDERS: ATTEND Internal Medicine Gastroenterology
DX: K57.30 Diverticulosis of large intestine without perforation or abscess without bleeding (principal); K64.8 Other hemorrhoids; K59.00 Constipation, unspecified; K62.89 Other specified diseases of anus and rectum; E11.9 Type 2 diabetes mellitus without complications; Z79.02 Long term (current) use of antithrombotics/antiplatelets; Z79.82 Long term (current) use of aspirin; Z79.85 Long-term (current) use of injectable non-insulin antidiabetic drugs; Z79.811 Long term (current) use of aromatase inhibitors; Z79.899 Other long term (current) drug therapy; Z88.0 Allergy status to penicillin; Z88.1 Allergy status to other antibiotic agents; Z88.2 Allergy status to sulfonamides; Z88.5 Allergy status to narcotic agent